=== PATIENT | female | born 1950 | race Caucasian/White ===

== ENCOUNTER 2021-10-06 00:56 | Emergency (ER) | payer MEDICARE, OTHER, SELFPAY ==
[2021-10-06 00:58] VITALS: BP 197/79; PULSE 60; RESP 18; TEMP 36.8; O2SAT 100; BMI 38.9
[2021-10-06 01:03] VITALS: BMI 38.9
--- NOTE | 2021-10-06 01:05 | XR_ITS ---
PROCEDURE INFORMATION: Exam: XR Chest Exam date and time: 10/06/2021 1:17 AM Age: 70 years old Clinical indication: Injury or trauma; Fall; Blunt trauma (contusions or hematomas) TECHNIQUE: Imaging protocol: XR of the chest. Views: 1 view. COMPARISON: CR XR SHOULDER RT MIN 2V 10/06/2021 1:14 AM FINDINGS: Lungs: Unremarkable. No consolidation. Pleural spaces: Unremarkable. No pleural effusion. No pneumothorax. Heart/Mediastinum: Unremarkable. No cardiomegaly. Bones/joints: Unremarkable. IMPRESSION: No acute findings.
--- NOTE | 2021-10-06 01:05 | CT_ITS ---
PROCEDURE INFORMATION: Exam: CT Head Without Contrast Exam date and time: 10/06/2021 1:13 AM Age: 70 years old Clinical indication: Injury or trauma; Fall; Blunt trauma (contusions or hematomas); Consciousness not specified TECHNIQUE: Imaging protocol: Computed tomography of the head without contrast. Radiation optimization: All CT scans at this facility use at least one of these dose optimization techniques: automated exposure control; mA and/or kV adjustment per patient size (includes targeted exams where dose is matched to clinical indication); or iterative reconstruction. COMPARISON: No relevant prior studies available. FINDINGS: Brain: Mild chronic brain volume loss and chronic small vessel ischemic changes. Cerebral ventricles: No ventriculomegaly. Paranasal sinuses: Chronic sphenoid sinusitis. Mastoid air cells: Visualized mastoid air cells are well aerated. Bones/joints: Unremarkable. No acute fracture. Soft tissues: Unremarkable. IMPRESSION: No acute intracranial findings.
--- NOTE | 2021-10-06 01:05 | CT_ITS ---
PROCEDURE INFORMATION: Exam: CT Cervical Spine Without Contrast Exam date and time: 10/06/2021 1:13 AM Age: 70 years old Clinical indication: Injury or trauma; Fall; Blunt trauma TECHNIQUE: Imaging protocol: Computed tomography images of the cervical spine without contrast. Radiation optimization: All CT scans at this facility use at least one of these dose optimization techniques: automated exposure control; mA and/or kV adjustment per patient size (includes targeted exams where dose is matched to clinical indication); or iterative reconstruction. COMPARISON: No relevant prior studies available. FINDINGS: Bones/joints: Anterior fusion of C6-C7. The hardware appears intact. Straightening of the curvature of the cervical spine is likely positional. Discs/Spinal canal/Neural foramina: No significant disc protrusion. No severe spinal canal stenosis. No significant neural foraminal narrowing. Lungs: Lung apices are normal. Thyroid: There is a right thyroid nodule measuring 2 cm on image 58 series 5. Soft tissues: Unremarkable. IMPRESSION: 1. No acute fracture or malalignment of the cervical spine. 2. There is a right thyroid nodule measuring 2 cm on image 58 series 5. Follow-up ultrasound is recommended. COMMENTS: Consistent with the [employer] [place] [employer]'s Incidental Findings Committee white paper (J Am Alek Radiol 2015): In patients aged 35 years and older with an incidental thyroid nodule equal to or greater than 1.[address], MRI or extrathyroidal US, further evaluation with dedicated thyroid US is recommended for patients with normal life expectancy and without comorbidities. For smaller nodules without suspicious features, no further evaluation or follow up is recommended.
--- NOTE | 2021-10-06 01:05 | XR_ITS ---
PROCEDURE INFORMATION: Exam: XR Right Shoulder Exam date and time: 10/06/2021 1:14 AM Age: 70 years old Clinical indication: Pain and injury or trauma; Fall; Blunt trauma (contusions or hematomas); Shoulder; Right TECHNIQUE: Imaging protocol: XR Right shoulder. Views: 2 or more views. COMPARISON: No relevant prior studies available. FINDINGS: Bones/joints: Normal. Soft tissues: Normal. IMPRESSION: No acute findings.
--- NOTE | 2021-10-06 01:05 | XR_ITS ---
PROCEDURE INFORMATION: Exam: XR Pelvis Exam date and time: 10/06/2021 1:19 AM Age: 70 years old Clinical indication: Injury or trauma; Fall; Blunt trauma (contusions or hematomas); Does not apply; Pelvic region TECHNIQUE: Imaging protocol: XR pelvis. Views: 1 or 2 view. COMPARISON: No relevant prior studies available. FINDINGS: Bones/joints: Bilateral hip degenerative changes with osteophyte formation involving the superior aspect of the acetabulum. No acute fracture. Soft tissues: Unremarkable. IMPRESSION: No acute findings.
[2021-10-06 01:43] VITALS: BP 160/77; PULSE 65; O2SAT 97
[2021-10-06 01:53] VITALS: BP 160/76; PULSE 62; O2SAT 93
--- NOTE | 2021-10-06 02:02 | HMH.EDFALL ---
ED Disposition Clinical Impression: Shoulder injury Qualifiers: Encounter type: initial encounter Laterality: right Qualified Code(s): S49.91XA - Unspecified injury of right shoulder and upper arm, initial encounter Fall Qualifiers: Encounter type: initial encounter Qualified Code(s): W19.XXXA - Unspecified fall, initial encounter Disposition: Home, Self-Care Condition on Discharge: Good Instructions: DI for Shoulder Pain Additional Instructions: ice and see pcp for follow up or oththo Referrals: Ivonne Bhardwaj PA [Primary Care Provider] - Boni Eldridge JR, MD [Physician] - - Critical Care Critical Care Time: No Attestation: On 10/06/21, the high probability of a clinically significant, sudden or life threatening deterioration of the following system(s) required my full and direct attention, intervention and personal management. The time I documented below is in addition to time spent performing reported procedures but includes the following listed in this critical care notation. Medical Decision Making - Medical Records Medical records reviewed: Yes: I reviewed the patient's medical records. - Thiago Inquiry Pt receiving controlled substance: No Vital Signs: 10/06/21 00:58 10/06/21 01:43 10/06/21 01:53 Temperature 98.3 F Temperature Source Oral Pulse Rate 65 62 Pulse Rate [Right] 60 Respiratory Rate 18 Blood Pressure 160/77 H 160/76 H Blood Pressure [Right Arm] 197/79 H Blood Pressure Mean 104 104 Blood Pressure Mean [Right Arm] 118 02 Sat by Pulse Oximetry 100 97 93 L - Lab Data Lab results reviewed: Yes: I reviewed the patient's lab results. Orders (Tests/Meds): ED MEDICATIONS Discontinued Medications Generic Name Dose Route Start Last Admin Trade Name Freq PRN Reason Stop Dose Admin Hydrocodone Bitart/Acetaminophen 1 tab 10/06/21 01:31 10/06/21 01:32 Hydrocodone/Apap 5/325 Mg Tablet PO 10/06/21 01:32 1 tab ONCE ONE Administration - Radiology Data #1 Image(s): Chest, Shoulder, Pelvis Image Reviewed: Yes I have reviewed radiologist's interpretation Preliminary Findings: No Fracture Seen - CT Data CT Scan: Head, C-Spine Time Received: 02:[address] Reviewed: Yes: I have viewed the radiologist's interpretation Preliminary Findings: Normal/NAD Medical Decision Narrative: tender rt shoulder w/o fx and will ask pt to see pcp Fall HPI - General Chief Complaint: Fall Stated Complaint: AO [id number] Right Shoulder Pain Time Seen by Provider: 10/06/21 02:02 Mode of Arrival: Ambulatory Source of Information: Patient, Medical Record Limitations: No Limitations Description of Symptoms (Recalled from ER Triage Doc. by RN): pt states was carrying down dog kennel down stairs and loss balance and fell down the stairs. pt c/o rt shoulder pain - History of Present Illness HPI Narrative: fall with acute shoulder pain sabas ROSEN complaint: fall Onset (ago): minute(s) Fall from: down stairs (#) Fall witnessed: no Place fall occurred: home Loss of consciousness: none Prolonged down time: no Symptoms prior to fall: none Context: tripped/slipped Location of injury - extremities: Right: shoulder Severity: moderate Associated symptoms (after fall): denies - Related Data Allergies Allergy/AdvReac Type Severity Reaction Status Date / Time No Known Allergies Allergy Verified 10/06/21 01:05 [facility] History - Hepatitis A Screen Attestation statement:: This patient has been screened for Hepatitis A risk factors. I have reviewed the patient's past medical history: Yes ROS Obtained: Yes All systems reviewed & no additional complaints - Constitutional Constitutional: Denies fever(s) - Eyes Eyes: Denies change in vision - ENT Ears, Nose, Mouth, and Throat: Denies sore throat - Cardiovascular Cardiovascular: Denies chest pain - Respiratory Respiratory: Denies shortness of breath - Gastrointestinal Gastrointestingal: D
[2021-10-06 02:18] VITALS: BP 159/78; PULSE 61; RESP 18; TEMP 36.8; O2SAT 99
== END 2021-10-06 02:19 | disposition home or self-care (01) ==
PROVIDERS: Emergency Provider Emergency Medicine; PCP Physician Assistant Medical
DX: S49.91XA Unspecified injury of right shoulder and upper arm, initial encounter (principal); W10.9XXA Fall (on) (from) unspecified stairs and steps, initial encounter
CPT/HCPCS: 70450; 71045; 72125; 72170; 73030; 99284

== ENCOUNTER 2022-01-17 14:15 | Emergency (ER) | payer MEDICARE, OTHER, SELFPAY ==
[2022-01-17 14:40] VITALS: BP 139/89; PULSE 83; RESP 22; TEMP 37.2; O2SAT 99; BMI 34.9
--- NOTE | 2022-01-17 14:40 | XR_ITS ---
FINAL REPORT CLINICAL HISTORY: CONGESTION COMPARISON: October 06, 2021 FINDINGS: TWO-VIEW CHEST Two views of the chest were obtained. The heart size and pulmonary vascularity are within normal limits. The mediastinum is normal. No acute pulmonary abnormality is identified. There is no pneumothorax. There are postoperative changes in the lower cervical spine. IMPRESSION: No active cardiopulmonary disease. Reviewed, Interpreted and Dictated by Jt Huizar III, MD Transcribed by Isela Cuevas Authenticated and [facility]
--- NOTE | 2022-01-17 15:43 | EXP.UTC ---
Discharge Plan Disposition Patient Disposition: Home, Self-Care Condition: Good Prescriptions Prescriptions: New amoxicillin-pot clavulanate 875-125 mg Tablet 1 tab PO Q12H 7 Days Qty: 14 0RF prednisone 20 mg tablet 20 mg PO BID Qty: 10 0RF benzonatate 100 mg capsule 100 mg PO TID PRN (Reason: cough) Qty: 30 0RF No Action tolterodine 2 mg Capsule,Extended Release 24hr 2 mg PO DAILY gabapentin 300 mg Capsule 300 mg PO DAILY Referrals Follow up/Referrals: Ivonne Bhardwaj PA [Primary Care Provider] - See instructions Activity Restrictions/Add. Instructions Additional Instructions/Restrictions: Start antibiotic today. Be sure to complete entire prescription even if feeling better Monitor temp. Tylenol every 4 hours as needed and / or ibuprofen every 6 hours as needed ( As long as your primary care physician has told you that it ok to take both. For fever/aches/pains ER if no less than 101 despite Tylenol or Motrin Humidifier/vaporizer or hot steamy shower Inhaler every 4-6 hours as needed like we discussed. If unsure how to use it, ask pharmacist to demonstrate how. Should help open airways and improve cough, wheezing, and shortness of breath *Tessalon Perles will not cause drowsiness but use at bedtime to help stop cough so that you may get some rest. *Start steroid today. Helps with inflammation therefore, cough and wheezing. Follow directions on the package. Reviewed side effects. Patient reports taking them before. Follow up IMMEDIATELY for new or worsening of symptoms OR no noticeable improvement over the next 48-72 hours. 911 immediately for any life threatening symptoms such as chest pain or difficulty breathing Clinical Impressions Clinical Impression: Bronchitis Instructions Patient Instructions: Acute Bronchitis, DI for Sinusitis Discharge ED Provider: Sarai Osborne [facility] HPI General Stated complaint: SOA,cough,sore throat,weakness,headache Mode of Arrival: Ambulatory Source of Information: Patient Limitations: No Limitations Time Seen by Provider: 01/17/22 15:43 Description of Symptoms (Recalled from Triage Doc. by RN): PATIENT C/O COUGH WITH DARK MUCOUS AND SOA X 1 WEEK HEENT Symptoms (Recalled from RN notes): No Resp Symptoms (Recalled from RN notes): Yes Skin Symptoms (Recalled from RN notes): No MS Symptoms (Recalled from RN notes): No Functional Status (Recalled from RN notes): WNL History of Present Illness Provider Complaint: Patient states that she has been having cough and chest congestion for about a week States that she has been having sinus congestion and pressure with drainage in the back of her throat States that she feels like she is trying to set up bronchitis or something States that at times after coughing she feels a little SOA Related Data Home Medications Medication Instructions Recorded Confirmed gabapentin 300 mg capsule 300 mg PO DAILY RLS 01/17/22 01/17/22 tolterodine 2 mg capsule,extended 2 mg PO DAILY BLADDER 01/17/22 01/17/22 release 24 hr Previous Rx's Medication Instructions Recorded amoxicillin 875 mg-potassium 1 tab PO Q12H 7 days #14 tabs 01/17/22 clavulanate 125 mg tablet benzonatate 100 mg capsule 100 mg PO TID PRN cough #30 caps 01/17/22 prednisone 20 mg tablet 20 mg PO BID #10 tabs 01/17/22 Allergies Allergy/AdvReac Type Severity Reaction Status Date / Time No Known Allergies Allergy Verified 10/06/21 01:05 Worker's Comp Is this a Worker's Comp case?: No [facility] Medical History (Updated 01/17/22 @ 16:24 by Sarai Osborne APRN) Thyroid disease Surgical History (Updated 01/17/22 @ 14:52 by Carina Heaton RN) History of cholecystectomy History of hysterectomy Social History (Updated 01/17/22 @ 14:53 by Carina Heaton RN) Smoking Status: Unknown if ever smoked alcohol intake: never current occupational status: other
[2022-01-17 16:28] VITALS: BP 139/89; PULSE 83; RESP 22; TEMP 37.2; O2SAT 99
== END 2022-01-17 16:32 | disposition home or self-care (01) ==
PROVIDERS: Emergency Provider Nurse Practitioner; PCP Physician Assistant Medical
DX: J20.9 Acute bronchitis, unspecified (principal)
CPT/HCPCS: 71046; 99212; G0463

== ENCOUNTER 2022-06-13 16:47 | Emergency (ER) | payer MEDICARE, OTHER, SELFPAY ==
[2022-06-13 17:13] VITALS: BP 168/77; PULSE 74; RESP 18; O2SAT 100; BMI 38.9
--- NOTE | 2022-06-13 18:13 | EXP.UTC ---
Discharge Plan Disposition Patient Disposition: Home, Self-Care Condition: Good Prescriptions Prescriptions: New benzonatate [benzonatate] 100 mg capsule 100 mg PO TIDP PRN (Reason: Cough) Qty: 30 0RF methylprednisolone 4 mg Tablets,Dose Pack 4 mg PO DIRECTED Qty: 21 0RF amoxicillin-pot clavulanate 875-125 mg Tablet 1 tab PO Q12H Qty: 20 0RF fluconazole [Diflucan] 150 mg tablet 150 mg PO ONCE Qty: 1 2RF No Action tolterodine 2 mg Capsule,Extended Release 24hr 2 mg PO DAILY gabapentin 300 mg Capsule 300 mg PO DAILY escitalopram oxalate 10 mg tablet 10 mg PO DAILY Referrals Follow up/Referrals: Ivonne Bhardwaj PA [Primary Care Provider] - See instructions Activity Restrictions/Add. Instructions Additional Instructions/Restrictions: Drink plenty of fluids. Take tylenol or ibuprofen for pain or fever. Take the medications as directed. Follow up with your regular doctor. GO TO THE ER FOR ANY WORSENING SYMPTOMS Clinical Impressions Clinical Impression: Bronchitis, Sinusitis Stand Alone Forms Stand Alone Forms: Work/School Release Discharge ED Provider: Kendrick Redmond [facility] General Stated complaint: cough,SOB,Congestion Mode of Arrival: Ambulatory Source of Information: Patient Limitations: No Limitations Time Seen by Provider: 06/13/22 18:13 Description of Symptoms (Recalled from Triage Doc. by RN): c/o cough and congestion with soa with walking. States her kids gave her the little kids got her sick. History of Present Illness Provider Complaint: She states that for the past 3 days she has had sinus congestion, chest congestion, productive cough with yellowish sputum and she has felt bad. Related Data Home Medications Medication Instructions Recorded Confirmed gabapentin 300 mg capsule 300 mg PO DAILY RLS 01/17/22 06/13/22 tolterodine 2 mg capsule,extended 2 mg PO DAILY BLADDER 01/17/22 06/13/22 release 24 hr escitalopram oxalate 10 mg tablet 10 mg PO DAILY . 06/13/22 06/13/22 Previous Rx's Medication Instructions Recorded amoxicillin 875 mg-potassium 1 tab PO Q12H #20 tabs 06/13/22 clavulanate 125 mg tablet benzonatate 100 mg capsule 100 mg PO TIDP PRN Cough #30 caps 06/13/22 fluconazole 150 mg tablet 150 mg PO ONCE #1 tab 06/13/22 (Diflucan) methylprednisolone 4 mg tablets in 4 mg PO DIRECTED #21 tabs 06/13/22 a dose pack Allergies Allergy/AdvReac Type Severity Reaction Status Date / Time No Known Allergies Allergy Verified 06/13/22 18:27 [facility] Disclaimer: The information contained in this section may have been updated after the patient was seen, as this information can be updated by other users. Medical History (Updated 06/13/22 @ 18:56 by Kendrick Redmond APRN) Thyroid disease Surgical History History of cholecystectomy History of hysterectomy Social History Smoking Status: Unknown if ever smoked alcohol intake: never current occupational status: other Travel in the last 8 weeks: None ROS Obtained: Yes All systems reviewed & no additional complaints except as documented Constitutional Constitutional: Reports chills and Reports fever(s) Eyes Eyes: Denies eye discharge ENT Ears, Nose, Mouth, and Throat: Reports as per HPI Cardiovascular Cardiovascular: Denies chest pain Respiratory Respiratory: Denies chest congestion and Reports cough Gastrointestinal Gastrointestingal: Reports nausea; Denies abdominal pain, constipation, cramping, diarrhea or vomiting Musculoskeletal Musculoskeletal: Denies arthralgias Integumentary/Breasts Skin/Breast: Denies rash Neurologic Neurologic: Denies paresthesias Physical Exam General General appearance: alert and in no apparent distress Eye Eye exam: Present normal appearance, PERRL and EOMI ENT ENT exam: Present mucous membranes moist and normal e
[2022-06-13 18:15] VITALS: BP 168/77; PULSE 74; RESP 20; TEMP 36.7; O2SAT 100; BMI 38.9
[2022-06-13 19:08] VITALS: BP 168/77; PULSE 74; RESP 20; TEMP 36.7; O2SAT 100
== END 2022-06-13 19:08 | disposition home or self-care (01) ==
PROVIDERS: Emergency Provider Nurse Practitioner Family; PCP Physician Assistant Medical
DX: J40 Bronchitis, not specified as acute or chronic (principal); J32.9 Chronic sinusitis, unspecified
CPT/HCPCS: 96372; 99212; 99213; G0463; J0696

== ENCOUNTER 2022-09-29 14:26 | Emergency (ER) | payer MEDICARE, OTHER, SELFPAY ==
--- NOTE | 2022-09-29 14:41 | EXP.UTC ---
Discharge Plan Disposition Patient Disposition: Home, Self-Care Condition: Good Prescriptions Prescriptions: New albuterol sulfate 90 mcg/actuation HFA aerosol inhaler 2 inh inhalation Q6H PRN (Reason: shortness of breath or wheezing) Qty: 8.5 0RF doxycycline hyclate 100 mg tablet 100 mg PO BID Qty: 20 0RF prednisone 20 mg tablet 20 mg PO BID Qty: 10 0RF No Action tolterodine 2 mg capsule,extended release 24hr 2 mg PO DAILY Label Comments: TAKE 1 CAPSULE BY MOUTH DAILY FOR OVERACTIVE BLADDER ibuprofen 800 mg tablet 800 mg PO TID Label Comments: TAKE 1 TABLET BY MOUTH 3 TIMES A DAY NEEDED FOR JOINT PAIN WITH ARTHRITIS cyanocobalamin (vitamin B-12) 1,000 mcg/mL solution 1,000 mcg IM MONTHLY Label Comments: ADMINISTER 1 ML IN THE MUSCLE EVERY 30 DAYS DIRECTED BY PRESCRIBER albuterol sulfate 90 mcg/actuation HFA aerosol inhaler 2 puff INHALATION Q6HP PRN (Reason: Wheezing) Label Comments: INHALE 2 PUFFS BY MOUTH EVERY 6 HOURS NEEDED FOR WHEEZING OR SHORTNESS OF BREATH escitalopram oxalate 10 mg tablet 10 mg PO DAILY Label Comments: TAKE 1 TABLET BY MOUTH ONCE DAILY. CANCEL 5MG DOSE (DME) Eclipse Syringe 3 mL 25 gauge x 1 syringe MISCELLANEOUS Label Comments: USE DIRECTED EVERY 30 DAYS WITH B12 INJECTION Clenpiq 10 mg-3.5 gram- 12 gram/175 mL solution 350 ml PO DIRECTED Label Comments: TAKE 350ML BY MOUTH DIRECTED gabapentin 300 mg Capsule 300 mg PO DAILY Referrals Follow up/Referrals: Ivonne Bhardwaj PA [Primary Care Provider] - See instructions Clinical Impressions Clinical Impression: Bronchitis Instructions Patient Instructions: DI for Acute Bronchitis Discharge ED Provider: Quynh Saleh [facility] HPI General Stated complaint: cough, congestion Time Seen by Provider: 09/29/22 15:10 History of Present Illness Provider Complaint: Cough, congestion X 2 days. Losing voice. No fever. Grandkids have been sick all week. Gets bronchitis somewhat frequently. Onset (ago): day(s) (2) Location: chest Relieving factors: none Exacerbating factors: none Associated symptoms: denies other symptoms Treatments prior to arrival: none Related Data Home Medications Medication Instructions Recorded Confirmed gabapentin 300 mg capsule 300 mg PO DAILY RLS 01/17/22 09/29/22 albuterol sulfate 90 mcg/actuation 2 puff inhalation Q6HP PRN Wheezing 09/29/22 09/29/22 aerosol inhaler cyanocobalamin (vitamin B-12) 1,000 mcg IM MONTHLY Supplement 09/29/22 09/29/22 1,000 mcg/mL injection solution escitalopram oxalate 10 mg tablet 10 mg PO DAILY . 09/29/22 09/29/22 ibuprofen 800 mg tablet 800 mg PO TID Pain 09/29/22 09/29/22 sod picosulf 10 mg-magnes 3.5 350 ml PO DIRECTED . 09/29/22 09/29/22 gram-citric 12 gram/175 mL oral solution (Clenpiq) syringe with needle, safety 3 mL 09/29/22 09/29/22 25 gauge x 1 (Eclipse Syringe) tolterodine 2 mg capsule,extended 2 mg PO DAILY OVERACTIVE BLADDER 09/29/22 09/29/22 release 24 hr Previous Rx's Medication Instructions Recorded albuterol sulfate 90 mcg/actuation 2 inh inhalation Q6H PRN shortness 09/29/22 aerosol inhaler of breath or wheezing #8.5 grams doxycycline hyclate 100 mg tablet 100 mg PO BID #20 tabs 09/29/22 prednisone 20 mg tablet 20 mg PO BID #10 tabs 09/29/22 Allergies Allergy/AdvReac Type Severity Reaction Status Date / Time No Known Allergies Allergy Verified 06/13/22 18:27 [facility] Disclaimer: The information contained in this section may have been updated after the patient was seen, as this information can be updated by other users. Medical History (Updated 09/29/22 @ 15:20 by JEANNETTE Gonzales) Thyroid disease Surgical History History of cholecystectomy History of hysterectomy Social History (Reviewed 06/13/22 @ 18:27 b
[2022-09-29 14:45] VITALS: BP 122/78; PULSE 75; RESP 18; TEMP 36.9; O2SAT 99; BMI 38.0
[2022-09-29 15:20] VITALS: BP 122/78; PULSE 75; RESP 18; TEMP 36.9; O2SAT 99
== END 2022-09-29 15:25 | disposition home or self-care (01) ==
PROVIDERS: Emergency Provider Physician Assistant; PCP Physician Assistant Medical
DX: J20.9 Acute bronchitis, unspecified (principal)
CPT/HCPCS: 99212; 99214; G0463

== ENCOUNTER 2022-11-28 06:28 | Day surgery (SDC) | payer MEDICARE, OTHER, SELFPAY ==
[2022-11-23 11:05] VITALS: BMI 39.3
[2022-11-28 06:53] VITALS: BP 153/63; PULSE 72; RESP 16; TEMP 36.4; O2SAT 97
[2022-11-28 08:03] VITALS: BP 133/74; PULSE 62; RESP 17; O2SAT 100
[2022-11-28 08:08] VITALS: BP 160/75; PULSE 60; RESP 16; O2SAT 97
[2022-11-28 08:13] VITALS: BP 149/74; PULSE 61; RESP 17; O2SAT 100
[2022-11-28 08:20] VITALS: BP 154/90; PULSE 78; RESP 18; O2SAT 93
== END 2022-11-28 08:30 | disposition home or self-care (01) ==
PROVIDERS: PCP Physician Assistant Medical; Visit Provider Ophthalmology
DX: H25.812 Combined forms of age-related cataract, left eye (principal)
CPT/HCPCS: 66984; V2632

== ENCOUNTER 2022-12-12 06:47 | Day surgery (SDC) | payer MEDICARE, OTHER, SELFPAY ==
[2022-12-12 07:09] VITALS: BP 160/54; PULSE 64; RESP 18; TEMP 36.4; O2SAT 97; BMI 38.9
[2022-12-12 08:10] VITALS: BP 172/83; PULSE 56; RESP 16; O2SAT 99
[2022-12-12 08:15] VITALS: BP 157/79; PULSE 55; RESP 17; O2SAT 99
[2022-12-12 08:20] VITALS: BP 147/72; PULSE 52; RESP 16; O2SAT 100
[2022-12-12 08:25] VITALS: BP 147/80; PULSE 67; RESP 18; TEMP 36.6; O2SAT 97
[2022-12-12 08:32] VITALS: BP 147/80; PULSE 67; RESP 18; TEMP 36.6; O2SAT 97
== END 2022-12-12 08:34 | disposition home or self-care (01) ==
PROVIDERS: PCP Physician Assistant Medical; Visit Provider Ophthalmology
DX: H25.811 Combined forms of age-related cataract, right eye (principal)
CPT/HCPCS: 66984; V2632

== ENCOUNTER 2023-04-24 13:28 | Emergency (ER) | payer MEDICARE, OTHER, SELFPAY ==
[2023-04-24 14:40] VITALS: BP 159/67; PULSE 60; RESP 18; TEMP 36.7; O2SAT 100; BMI 38.0
[2023-04-24 14:53] LABS: UTC Influenza A Antigen Negative (Negative); UTC Influenza B Antigen Negative (Negative)
--- NOTE | 2023-04-24 15:15 | EXP.UTC ---
Discharge Plan Disposition Patient Disposition: Home, Self-Care Condition: Good Prescriptions Prescriptions: New [id number]-[id number]-[id number] [Bromfed DM] 2-30-10 mg/5 mL syrup 10 ml PO Q6H PRN (Reason: cold symptoms) Qty: 200 0RF amoxicillin-pot clavulanate [Augmentin] 500-125 mg tablet 1 tab PO Q12H Qty: 20 0RF No Action albuterol sulfate 90 mcg/actuation HFA aerosol inhaler 2 inh inhalation Q6H PRN (Reason: shortness of breath or wheezing) Qty: 8.5 5RF tolterodine 2 mg capsule,extended release 24hr 2 mg PO DAILY Patient Comments: TAKE 1 CAPSULE BY MOUTH DAILY FOR OVERACTIVE BLADDER ibuprofen 800 mg tablet 800 mg PO TID Patient Comments: TAKE 1 TABLET BY MOUTH 3 TIMES A DAY NEEDED FOR JOINT PAIN WITH ARTHRITIS cyanocobalamin (vitamin B-12) 1,000 mcg/mL solution 1,000 mcg IM MONTHLY Patient Comments: ADMINISTER 1 ML IN THE MUSCLE EVERY 30 DAYS DIRECTED BY PRESCRIBER escitalopram oxalate 10 mg tablet 10 mg PO DAILY Patient Comments: TAKE 1 TABLET BY MOUTH ONCE DAILY. CANCEL 5MG DOSE (DME) Eclipse Syringe 3 mL 25 gauge x 1 syringe MISCELLANEOUS Patient Comments: USE DIRECTED EVERY 30 DAYS WITH B12 INJECTION ferrous fumarate 324 mg (106 mg iron) Tablet 1 mg PO DAILY (DME) Eclipse Syringe 3 mL 25 gauge x 1 syringe MISCELLANEOUS Patient Comments: USE DIRECTED EVERY 30 DAYS WITH B12 INJECTION gabapentin 300 mg Capsule 300 mg PO DAILY Referrals Follow up/Referrals: Ivonne Bhardwaj PA [Primary Care Provider] - See instructions Clinical Impressions Clinical Impression: Acute upper respiratory infection Instructions Patient Instructions: DI for Viral Upper Respiratory Infection -- Adult Discharge ED Provider: [place]ai Osborne [facility] [place] Stated complaint: shortness of air Mode of Arrival: Ambulatory Source of Information: Patient Limitations: No Limitations Time Seen by Provider: 04/24/23 15:14 Description of Symptoms (Recalled from Triage Doc. by RN): cough, fatigue, and body ache HEENT Symptoms (Recalled from RN notes): Yes Resp Symptoms (Recalled from RN notes): No Skin Symptoms (Recalled from RN notes): No MS Symptoms (Recalled from RN notes): No Functional Status (Recalled from RN notes): n/a History of Present Illness Provider Complaint: Pt states that they have had some sinus issues and body aches the last couple of days. She states that she had a Remicade on Sunday. Related Data Home Medications Medication Instructions Recorded Confirmed gabapentin 300 mg capsule 300 mg PO DAILY RLS 01/17/22 04/24/23 cyanocobalamin (vitamin B-12) 1,000 mcg IM MONTHLY Supplement 09/29/22 04/24/23 1,000 mcg/mL injection solution escitalopram oxalate 10 mg tablet 10 mg PO DAILY . 09/29/22 04/24/23 ibuprofen 800 mg tablet 800 mg PO TID Pain 09/29/22 04/24/23 syringe with needle, safety 3 mL 09/29/22 12/12/22 25 gauge x 1 (Eclipse Syringe) tolterodine 2 mg capsule,extended 2 mg PO DAILY OVERACTIVE BLADDER 09/29/22 04/24/23 release 24 hr ferrous fumarate 324 mg (106 mg 1 mg PO DAILY Supplement 11/23/22 04/24/23 iron) tablet syringe with needle, safety 3 mL 11/23/22 12/12/22 25 gauge x 1 (Eclipse Syringe) Previous Rx's Medication Instructions Recorded albuterol sulfate 90 mcg/actuation 2 inh inhalation Q6H PRN shortness 12/04/22 aerosol inhaler of breath or wheezing #8.5 grams amoxicillin 500 mg-potassium 1 tab PO Q12H #20 tabs 04/24/23 clavulanate 125 mg tablet (Augmentin) mwyfekhccizdzzk-kjhrbnreppyibmp-TY 10 ml PO Q6H PRN cold symptoms 04/24/23 2 mg-30 mg-10 mg/5 mL oral syrup #200 mL (Bromfed DM) Allergies Allergy/AdvReac Type Severity Reaction Status Date / Time No Known Allergies Allergy Verified 04/24/23 15:01 Worker's Comp Is this a Worker's Comp case?: No [facility] Disclaimer: The information contained in this section may have been u
[2023-04-24 15:31] VITALS: BP 159/67; PULSE 60; RESP 18; TEMP 36.7; O2SAT 100
== END 2023-04-24 15:30 | disposition home or self-care (01) ==
PROVIDERS: Nurse Practitioner Family; Emergency Provider Nurse Practitioner; PCP Physician Assistant Medical
DX: R05.9 Cough, unspecified (principal); J06.9 Acute upper respiratory infection, unspecified; R51.9 Headache, unspecified; R09.81 Nasal congestion; R53.83 Other fatigue; M79.18 Myalgia, other site; B34.9 Viral infection, unspecified
CPT/HCPCS: 87635; 87804; 99212; 99214; G0463

== ENCOUNTER 2023-05-21 10:44 | Emergency (ER) | payer MEDICARE, OTHER, SELFPAY ==
[2023-05-21 10:55] VITALS: BP 147/70; PULSE 73; RESP 20; TEMP 36.8; O2SAT 100; BMI 38.9
[2023-05-21 11:12] LABS: UTC Influenza A Antigen Negative (Negative); UTC Influenza B Antigen Negative (Negative)
--- NOTE | 2023-05-21 11:12 | ED_ITS ---
Discharge Plan Disposition Patient Disposition: Home, Self-Care Condition: Good Prescriptions Prescriptions: New doxycycline hyclate 100 mg capsule 100 mg PO BID Qty: 20 0RF prednisone [prednisone] 20 mg tablet 20 mg PO BID 5 Days Qty: 10 0RF guaifenesin [Mucinex] 600 mg tablet extended release 12hr 1,200 mg PO BID PRN (Reason: cough) Qty: 20 0RF albuterol sulfate [Proventil HFA] 90 mcg/actuation HFA aerosol inhaler 1 inh inhalation Q6H PRN (Reason: shortness of breath or wheezing) Qty: 8.5 0RF No Action tolterodine 2 mg capsule,extended release 24hr 2 mg PO DAILY Patient Comments: TAKE 1 CAPSULE BY MOUTH DAILY FOR OVERACTIVE BLADDER ibuprofen 800 mg tablet 800 mg PO TIDP PRN (Reason: Pain) Patient Comments: TAKE 1 TABLET BY MOUTH 3 TIMES A DAY NEEDED FOR JOINT PAIN WITH ARTHRITIS gabapentin 300 mg capsule 300 mg PO DAILY Patient Comments: TAKE 1 CAPSULE BY MOUTH FOUR TIMES DAILY escitalopram oxalate 10 mg tablet 10 mg PO DAILY Patient Comments: TAKE 1 TABLET BY MOUTH ONCE DAILY Referrals Follow up/Referrals: Provider,Referral, MD [Primary Care Provider] - See instructions Activity Restrictions/Add. Instructions Additional Instructions/Restrictions: * Start antibiotic today. Be sure to complete entire prescription even if feeling better * Monitor temp. Tylenol every 4 hours as needed and / or ibuprofen every 6 hours as needed ( As long as your primary care physician has told you that it ok to take both. For fever/aches/pains ER if no less than 101 despite Tylenol or Motrin * Humidifier/vaporizer or hot steamy shower * Inhaler every 4-6 hours as needed like we discussed. If unsure how to use it, ask pharmacist to demonstrate how. Should help open airways and improve cough, wheezing, and shortness of breath * Mucinex for your cough Be sure to drink lots of water. *Start steroid today. Helps with inflammation therefore, cough and wheezing. Follow directions on the package. Reviewed side effects. Patient reports taking them before. Follow up IMMEDIATELY for new or worsening of symptoms OR no noticeable improvement over the next 48-72 hours. 911 immediately for any life threatening symptoms such as chest pain or difficulty breathing Clinical Impressions Clinical Impression: Bronchitis, Sinusitis Instructions Patient Instructions: Acute Bronchitis, DI for Sinusitis Discharge ED Provider: Sarai Osborne [facility] [place] HPI General Stated complaint: soa, cough and poss fever, weakness Mode of Arrival: Ambulatory Source of Information: Patient Limitations: No Limitations Time Seen by Provider: 05/21/23 11:12 Description of Symptoms (Recalled from Triage Doc. by RN): PATIENT C/O WHEEZING, COUGH, AND SOA X 2 WEEKS HEENT Symptoms (Recalled from RN notes): No Resp Symptoms (Recalled from RN notes): Yes Skin Symptoms (Recalled from RN notes): No MS Symptoms (Recalled from RN notes): No Functional Status (Recalled from RN notes): WNL History of Present Illness Provider Complaint: Patient states that she has been having sinus congestion and pressure, cough, wheezing on and off and scratchy throat for 2 weeks States that she feels like she has coughed so much she has made her ribs sore States that last month she was given antibiotic for Bronchitis and she got a little better but then it came back States that today she was bringing her daughter in and wanted to get checked again Related Data Home Medications Medication Instructions Recorded Confirmed escitalopram oxalate 10 mg tablet 10 mg PO DAILY 05/21/23 05/21/23 gabapentin 300 mg capsule 300 mg PO DAILY 05/21/23 05/21/23 ibuprofen 800 mg tablet 800 mg PO TIDP PRN Pain 05/21/23 05/21/23 tolterodine 2 mg capsule,extended 2 mg PO DAILY 05/21/23 05/21/23 release 24 hr Previous Rx's Medication Instructions Recorded albuterol sulfate 90 mcg/actuation 1 inh inhalation Q6H PRN shortness 05/21/23 aerosol inhaler (Proventil HFA) of breath or wheezing #8.5 grams doxycycline hyclate 100 mg capsule 100 mg PO BID #20 caps 05/21/23 guaifenesin 600 mg tablet, 1,200 mg PO BID PRN cough #20 tabs 05/21/23 extended release 12 hr (Mucinex) prednisone 20 mg tablet 20 mg PO BID 5 days #10 tabs 05/21/23 Allergies Allergy/AdvReac Type Severity Reaction Status Date / Time No Known Allergies Allergy Verified 04/24/23 15:01 Worker's Comp Is this a Worker's Comp case?: No [facility] Disclaimer: The information contained in this section may have been updated after the patient was seen, as this information can be updated by other users. Medical History (Updated 05/21/23 @ 11:32 by Sarai Osborne APRN) Cataract History of pulmonary embolus (PE) Thyroid disease Surgical History History of cholecystectomy History of gastric bypass History of hysterectomy History of knee replacement procedure of right knee History of neck surgery History of shoulder surgery Family History Other Family history of diabetes mellitus type II Family history of hypertension Social History Smoking Status: Never smoker alcohol intake: never current occupational status: other Travel in the last 8 weeks: None housing: house lives independently: Yes marital status: single education level: high school service: No senior care: No caffeine: Yes do you feel safe at home: Yes victim of physical abuse: No victim of emotional abuse: No victim of sexual abuse: No would you like helpful sources: No ROS Obtained: Yes All systems reviewed & no additional complaints except as documented and Yes Systems reviewed as appropriate & no additional complaints except as documented Constitutional Constitutional: Reports system reviewed and no additional complaints, except as documented, Reports as per HPI and Reports headache(s) ENT Ears, Nose, Mouth, and Throat: Reports system reviewed and no additional complaints, except as documented, Reports as per HPI, Reports headache(s), Re ports sinus pain, Reports sinus pressure and Reports sore throat Cardiovascular Cardiovascular: Reports system reviewed and no additional complaints, except as documented, Reports as per HPI, Denies dyspnea and Denies dyspnea on exertion Respiratory Respiratory: Reports system reviewed and no additional complaints, except as documented, Reports as per HPI, Reports shortness of breath (at times after coughing), Reports cough, Denies dyspnea, Denies dyspnea on exertion, Denies hemoptysis, Reports pain with cough (sometimes) and Reports wheezing Gastrointestinal Gastrointestingal: Reports system reviewed and no additional complaints, except as documented and as per HPI Musculoskeletal Musculoskeletal: Reports system reviewed and no additional complaints, except as documented and Reports as per HPI Neurologic Neurologic: Reports headache(s) Allergic/Immunologic Allergic/Immunologic: Reports wheezing Physical Exam General General appearance: alert and in no apparent distress ENT ENT exam: Present mucous membranes moist Expanded ENT Exam Nose exam: Present sinus tenderness Throat exam: Present other (Pharyngeal erythema noted with PND) Chest Chest inspection: Present normal inspection; Absent symmetric chest wall rise or tenderness Respiratory Respiratory exam: Present normal lung sounds bilaterally and wheezes (scattered); Absent respiratory distress Cardiovascular Cardiovascular exam: Present regular rate, normal rhythm and normal heart sounds Neurological Exam Neurological exam: Present alert, oriented X3 and normal gait Medical Decision Making Thiago Inquiry Pt receiving controlled substance: No Thiago was queried for this patient: No Vital Signs: 05/21/23 10:55 Temperature 98.3 F Temperature Source Oral Pulse Rate [Left Brachial] 73 Respiratory Rate 20 Blood Pressure [Left Arm] 147/70 H Blood Pressure Mean [Left Arm] 95 Blood Pressure Source [Left Arm] Automatic Cuff Blood Pressure Position [Left Arm] Sitting 02 Sat by Pulse Oximetry 100 Oxygen Delivery Method Room Air Lab Data Lab results reviewed: Yes I reviewed the patient's lab results. Lab Results 05/21/23 11:01: Influenza Type A Ag Negative, Influenza Type B Ag Negative Medical Decision Narrative: Recommended CXR and patient declined states that she had one a week or so ago and has appointment with PCP later this week and will get it then Medications discussed with pharmacy
[2023-05-21 11:14] VITALS: BP 147/70; PULSE 73; RESP 20; TEMP 36.8; O2SAT 100
== END 2023-05-21 11:38 | disposition home or self-care (01) ==
PROVIDERS: Emergency Provider Nurse Practitioner
DX: J40 Bronchitis, not specified as acute or chronic (principal); J01.90 Acute sinusitis, unspecified; R05.9 Cough, unspecified; R06.2 Wheezing; E07.9 Disorder of thyroid, unspecified; Z86.711 Personal history of pulmonary embolism
CPT/HCPCS: 87804; 99212; 99214; G0463

== ENCOUNTER 2023-11-23 12:25 | Emergency (ER) | payer MEDICARE, OTHER, SELFPAY ==
[2023-11-23 12:39] VITALS: BP 148/71; PULSE 90; RESP 16; TEMP 37.1; O2SAT 96; BMI 38.6
--- NOTE | 2023-11-23 13:15 | EXP.UTC ---
Discharge Plan Disposition Patient Disposition: Home, Self-Care Condition: Good Prescriptions Prescriptions: New amoxicillin 500 mg capsule 500 mg PO TID 7 Days Qty: 21 0RF fluticasone propionate [Flonase Allergy Relief] 50 mcg/actuation spray,suspension 2 spray intranasal DAILY Qty: 16 0RF Rx Instructions: administer into each nostril No Action tolterodine 2 mg capsule,extended release 24hr 2 mg PO DAILY Patient Comments: TAKE 1 CAPSULE BY MOUTH DAILY FOR OVERACTIVE BLADDER ibuprofen 800 mg tablet 800 mg PO TIDP PRN (Reason: Pain) Patient Comments: TAKE 1 TABLET BY MOUTH 3 TIMES A DAY NEEDED FOR JOINT PAIN WITH ARTHRITIS gabapentin 300 mg capsule 300 mg PO DAILY Patient Comments: TAKE 1 CAPSULE BY MOUTH FOUR TIMES DAILY escitalopram oxalate 10 mg tablet 10 mg PO DAILY Patient Comments: TAKE 1 TABLET BY MOUTH ONCE DAILY doxycycline hyclate 100 mg capsule 100 mg PO BID Qty: 20 0RF prednisone [prednisone] 20 mg tablet 20 mg PO BID 5 Days Qty: 10 0RF guaifenesin [Mucinex] 600 mg tablet extended release 12hr 1,200 mg PO BID PRN (Reason: cough) Qty: 20 0RF albuterol sulfate [Proventil HFA] 90 mcg/actuation HFA aerosol inhaler 1 inh inhalation Q6H PRN (Reason: shortness of breath or wheezing) Qty: 8.5 0RF Referrals Follow up/Referrals: Ivonne Bhardwaj PA [Primary Care Provider] - See instructions Activity Restrictions/Add. Instructions Additional Instructions/Restrictions: Take medication as prescribed Use flonase as prescribed Follow up with your Family Doctor if needed Clinical Impressions Clinical Impression: Otitis media Instructions Patient Instructions: Middle Ear Infection, Amoxicillin Discharge ED Provider: Sarai Osborne [facility] General Stated complaint: left ear ache Mode of Arrival: Ambulatory Source of Information: Patient Limitations: No Limitations Time Seen by Provider: 11/23/23 13:16 Description of Symptoms (Recalled from Triage Doc. by RN): Complaint of left ear pain since yesterday. HEENT Symptoms (Recalled from RN notes): Yes Resp Symptoms (Recalled from RN notes): No Skin Symptoms (Recalled from RN notes): No MS Symptoms (Recalled from RN notes): No Functional Status (Recalled from RN notes): wnl History of Present Illness Provider Complaint: Patient states that she has been having pain in her left ear for about a week that got worse yesterday States that she feels pain shoot through it and it hurts her really bad feels like it did when she had an ear infection Related Data Home Medications Medication Instructions Recorded Confirmed escitalopram oxalate 10 mg tablet 10 mg PO DAILY 05/21/23 05/21/23 gabapentin 300 mg capsule 300 mg PO DAILY 05/21/23 05/21/23 ibuprofen 800 mg tablet 800 mg PO TIDP PRN Pain 05/21/23 05/21/23 tolterodine 2 mg capsule,extended 2 mg PO DAILY 05/21/23 05/21/23 release 24 hr Previous Rx's Medication Instructions Recorded albuterol sulfate 90 mcg/actuation 1 inh inhalation Q6H PRN shortness 05/21/23 aerosol inhaler (Proventil HFA) of breath or wheezing #8.5 grams doxycycline hyclate 100 mg capsule 100 mg PO BID #20 caps 05/21/23 guaifenesin 600 mg tablet, 1,200 mg (2 x 600 mg) PO BID PRN 05/21/23 extended release 12 hr (Mucinex) cough #20 tabs prednisone 20 mg tablet 20 mg PO BID 5 days #10 tabs 05/21/23 amoxicillin 500 mg capsule 500 mg PO TID 7 days #21 caps 11/23/23 fluticasone propionate 50 2 spray intranasal DAILY #16 grams 11/23/23 mcg/actuation nasal spray,suspension (Flonase Allergy Relief) Allergies Allergy/AdvReac Type Severity Reaction Status Date / Time No Known Allergies Allergy Verified 04/24/23 15:01 Worker's Comp Is this a Worker's Comp case?: No [facility] Disclaimer: The information contained in this section may have been updated after the patient was seen, as this information can be updated by other users. Medical History (Updated 11/23/23 @ 13:38 by Sarai Osborne APRN) Cataract History of pulmonary embolus (PE) Thyroid disease Surgical History History of neck surgery History of shoulder surgery History of knee replacement procedure of right knee History of gastric bypass History of hysterectomy History of cholecystectomy Family History Other Family history of diabetes mellitus type II Family history of hypertension Social History Smoking Status: Never smoker alcohol intake: never current occupational status: other Travel in the last 8 weeks: None housing: house lives independently: Yes marital status: single education level: high school service: No senior living: No caffeine: Yes do you feel safe at home: Yes victim of physical abuse: No victim of emotional abuse: No victim of sexual abuse: No would you like helpful sources: No ROS Obtained: Yes All systems reviewed & no additional complaints except as documented and Yes Systems reviewed as appropriate & no additional complaints except as documented Constitutional Constitutional: Reports system reviewed and no additional complaints, except as documented and Reports as per HPI ENT Ears, Nose, Mouth, and Throat: Reports system reviewed and no additional complaints, except as documented, Reports as per HPI and Reports otalgia Cardiovascular Cardiovascular: Reports system reviewed and no additional complaints, except as documented and Reports as per HPI Respiratory Respiratory: Reports system reviewed and no additional complaints, except as documented and Reports as per HPI Gastrointestinal Gastrointestingal: Reports system reviewed and no additional complaints, except as documented and as per HPI Physical Exam General General appearance: alert and in no apparent distress ENT ENT exam: Present mucous membranes moist Expanded ENT Exam TM/Canal exam: Left TM: erythema and bulging Respiratory Respiratory exam: Present normal lung sounds bilaterally; Absent respiratory distress or wheezes Cardiovascular Cardiovascular exam: Present regular rate, normal rhythm and normal heart sounds Neurological Exam Neurological exam: Present alert, oriented X3 and normal gait Medical Decision Making Thiago Inquiry Pt receiving controlled substance: No Thiago was queried for this patient: No Vital Signs: 11/23/23 12:39 Temperature 98.7 F Temperature Source Oral Pulse Rate [Radial] 90 Respiratory Rate 16 Blood Pressure [Right Arm] 148/71 H Blood Pressure Mean [Right Arm] 96 Blood Pressure Source [Right Arm] Automatic Cuff Blood Pressure Position [Right Arm] Sitting 02 Sat by Pulse Oximetry 96 Oxygen Delivery Method Room Air
[2023-11-23 13:44] VITALS: BP 148/71; PULSE 90; RESP 16; TEMP 37.1; O2SAT 96
== END 2023-11-23 13:44 | disposition home or self-care (01) ==
PROVIDERS: Emergency Provider Nurse Practitioner; PCP Physician Assistant Medical
DX: H66.92 Otitis media, unspecified, left ear (principal); H92.02 Otalgia, left ear
CPT/HCPCS: 99212; 99214; G0463

== ENCOUNTER 2024-03-28 16:22 | Emergency (ER) | payer MEDICARE, OTHER, SELFPAY ==
[2024-03-28 17:12] VITALS: BP 167/48; PULSE 60; RESP 18; TEMP 36.5; O2SAT 98; BMI 42.3
--- NOTE | 2024-03-28 17:29 | ED_ITS ---
Discharge Plan Prescriptions Prescriptions: New doxycycline hyclate 100 mg capsule 100 mg PO BID Qty: 20 0RF prednisone 20 mg tablet 20 mg PO BID 5 Days Qty: 10 0RF benzonatate 100 mg capsule 100 mg PO TID PRN (Reason: cough) Qty: 30 0RF No Action tolterodine 2 mg capsule,extended release 24hr 2 mg PO DAILY Patient Comments: TAKE 1 CAPSULE BY MOUTH DAILY FOR OVERACTIVE BLADDER ibuprofen 800 mg tablet 800 mg PO TIDP PRN (Reason: Pain) Patient Comments: TAKE 1 TABLET BY MOUTH 3 TIMES A DAY NEEDED FOR JOINT PAIN WITH ARTHRITIS gabapentin 300 mg capsule 300 mg PO DAILY Patient Comments: TAKE 1 CAPSULE BY MOUTH FOUR TIMES DAILY escitalopram oxalate 10 mg tablet 10 mg PO DAILY Patient Comments: TAKE 1 TABLET BY MOUTH ONCE DAILY albuterol sulfate [Proventil HFA] 90 mcg/actuation HFA aerosol inhaler 1 inh inhalation Q6H PRN (Reason: shortness of breath or wheezing) Qty: 8.5 0RF Referrals Follow up/Referrals: Ivonne Bhardwaj PA [Primary Care Provider] - See instructions Activity Restrictions/Add. Instructions Additional Instructions/Restrictions: * Start antibiotic today. Be sure to complete entire prescription even if feeling better * Monitor temp. Tylenol every 4 hours as needed and / or ibuprofen every 6 hours as needed ( As long as your primary care physician has told you that it ok to take both. For fever/aches/pains ER if no less than 101 de spite Tylenol or Motrin * Humidifier/vaporizer or hot steamy shower * Inhaler every 4-6 hours as needed like we discussed. If unsure how to use it, ask pharmacist to demonstrate how. Should help open airways and improve cough, wheezing, and shortness of breath * *Tessalon Perles will not cause drowsiness but use at bedtime to help stop cough so that you may get some rest. *Start steroid today. Helps with inflammation therefore, cough and wheezing. Follow directions on the package. Reviewed side effects. Patient reports taking them before. Follow up IMMEDIATELY for new or worsening of symptoms OR no noticeable improvement over the next 48-72 hours. 911 immediately for any life threatening symptoms such as chest pain or difficulty breathing Clinical Impressions Clinical Impression: Bronchitis, Sinusitis Instructions Patient Instructions: DI for Sinusitis, Acute Bronchitis Print Language Print Language: Singaporean Discharge ED Provider: Sarai Osborne [facility] HPI General Stated complaint: Cough,freezing,SOA,RAYMOND,sore throat Mode of Arrival: Ambulatory Source of Information: Patient Time Seen by Provider: 03/28/24 17:29 Description of Symptoms (Recalled from Triage Doc. by RN): COUGH, SOB, RAYMOND, DRAINAGE THAT IS THICK/GREEN X3 DAYS HEENT Symptoms (Recalled from RN notes): Yes Resp Symptoms (Recalled from RN notes): Yes Skin Symptoms (Recalled from RN notes): No MS Symptoms (Recalled from RN notes): No Functional Status (Recalled from RN notes): WNL History of Present Illness Provider Complaint: Patient states that she gets sinusitis and bronchitis about this time every year and feels like she has it States that she has been having sinus pain and pressure, drainage in the back of her throat and at times can cough it up at times not worried if she didnt come in it would settle into her lungs States feels like she cannot breath out of her nose and pressure behind her eyes Related Data Home Medications ?Medication ?Instructions ?Recorded ?Confirmed escitalopram oxalate 10 mg tablet 10 mg PO DAILY 05/21/23 03/28/24 gabapentin 300 mg capsule 300 mg PO DAILY 05/21/23 03/28/24 ibuprofen 800 mg tablet 800 mg PO TIDP PRN Pain 05/21/23 03/28/24 tolterodine 2 mg capsule,extended 2 mg PO DAILY 05/21/23 03/28/24 release 24 hr Previous Rx's ?Medication ?Instructions ?Recorded albuterol sulfate 90 mcg/actuation 1 inh inhalation Q6H PRN shortness 05/21/23 aerosol inhaler (Proventil HFA) of breath or wheezing #8.5 grams benzonatate 100 mg capsule 100 mg PO TID PRN cough #30 caps 03/28/24 doxycycline hyclate 100 mg capsule 100 mg PO BID #20 caps 03/28/24 prednisone 20 mg tablet 20 mg PO BID 5 days #10 tabs 03/28/24 Allergies Allergy/AdvReac Type Severity Reaction Status Date / Time No Known Allergies Allergy Verified 04/24/23 15:01 Worker's Comp Is this a Worker's Comp case?: No [facility] Disclaimer: The information contained in this section may have been updated after the patient was seen, as this information can be updated by other users. Medical History (Updated 03/28/24 @ 17:42 by Sarai Osborne APRN) Cataract History of pulmonary embolus (PE) Thyroid disease Surgical History History of neck surgery History of shoulder surgery History of knee replacement procedure of right knee History of gastric bypass History of hysterectomy History of cholecystectomy Family History Other Family history of diabetes mellitus type II Family history of hypertension Social History Smoking Status: Never smoker alcohol intake: never current occupational status: other housing: house lives independently: Yes marital status: single education level: high school service: No long-term: No caffeine: Yes do you feel safe at home: Yes victim of physical abuse: No victim of emotional abuse: No victim of sexual abuse: No would you like helpful sources: No ROS Obtained: Yes All systems reviewed & no additional complaints except as documented and Yes Systems reviewed as appropriate & no additional complaints except as documented Constitutional Constitutional: Reports system reviewed and no additional complaints, except as documented and Reports as per HPI ENT Ears, Nose, Mouth, and Throat: Reports system reviewed and no additional complaints, except as documented, Reports as per HPI, Reports sinus pain and Reports sinus pressure Cardiovascular Cardiovascular: Reports system reviewed and no additional complaints, except as documented and Reports as per HPI Respiratory Respiratory: Reports system reviewed and no additional complaints, except as documented, Reports as per HPI, Reports chest congestion and Reports cough Gastrointestinal Gastrointestingal: Reports system reviewed and no additional complaints, except as documented and as per HPI Physical Exam General General appearance: alert and in no apparent distress ENT ENT exam: Present mucous membranes moist Expanded ENT Exam Nose exam: Present sinus tenderness Throat exam: Present other (PND noted) Respiratory Respiratory exam: Present normal lung sounds bilaterally; Absent respiratory distress or wheezes Cardiovascular Cardiovascular exam: Present regular rate, normal rhythm and normal heart sounds Abdominal Exam Abdominal exam: Present soft and normal bowel sounds; Absent distention or tenderness Neurological Exam Neurological exam: Present alert, oriented X3 and normal gait Medical Decision Making Medical Records Screening: Per USPSTF and CDC recommendations, given the prevalence of disease in our region, it is our hospital?s policy to screen for HIV and viral Hepatitis for all patients aged 18 and over and those with ongoing risk factors. Thiago Inquiry Pt receiving controlled substance: No Thiago was queried for this patient: No Vital Signs: 03/28/24 17:12 Temperature 97.7 F Temperature Source Oral Pulse Rate [Left Radial] 60 Respiratory Rate 18 Blood Pressure [Left Arm] 167/48 H Blood Pressure Mean [Left Arm] 87 02 Sat by Pulse Oximetry 98 Medical Decision Narrative: Patient states that she has taken doxy and prednisone in the past without complications or reactions
[2024-03-28 17:44] VITALS: BP 167/48; PULSE 60; RESP 18; TEMP 36.5
== END 2024-03-28 17:47 | disposition home or self-care (01) ==
LOC: UTC 16:27
PROVIDERS: Emergency Provider Nurse Practitioner; PCP Physician Assistant Medical
DX: J20.9 Acute bronchitis, unspecified (principal)
CPT/HCPCS: 99213; G0381

== ENCOUNTER 2025-01-14 10:57 | Outpatient (RCR) | payer MEDICARE, OTHER, SELFPAY | END 2025-01-14 23:59 | disposition home or self-care (01) | LOC: PT 10:57 | PROVIDERS: PCP Physician Assistant Medical; Visit Provider Orthopaedic Surgery | DX: M48.062 Spinal stenosis, lumbar region with neurogenic claudication (principal) | CPT/HCPCS: 97163; 97530 ==

== ENCOUNTER 2025-03-29 15:33 | Emergency (ER) | payer MEDICARE, OTHER, SELFPAY ==
--- OUTSIDE RECORDS SUMMARY | 2022-03-23 09:25 | XMS_ITS | Encounter Summary ---
[facility] Organization [facility] Address [address] [place] [address] Care Team Providers Care Section Hand Name Role Phone Ivonne Renner PA-C Primary Care Provider [phone] Reason for Visit * Diagnostic Imaging (Routine) - Closed Specialty Diagnoses / Procedures Referred By Dawit mosley Referred To Contact Radiology Diagnoses Multiple thyroid nodules Procedures US Thyroid Valdez David MD [id number] [address] Phone: tel: fax: Referral ID Status Reason Start Date Expiration Date Visits Re quested Visits Authorized [id number] Closed 03/23/2022 03/23/2023 1 1 Encounter Details Date Type Department Care Team (Late st Contact Info) Description 03/23/2022 9:25 AM EST Hospital Encounter [facility] [address] [facility] [address] [place] [id number] Social History Tobacco Use Types Packs/Day Years Used Date Smoking Tobacco: Former Cigarettes Q uit: 1989 Passive Smoke Exposure: Past Smokeless Tobacco: Never Alcohol Use Standard Drinks/Week Comments Never 0 (1 standard drink = 0.6 oz pur e alcohol) PHQ-2 Answer Date Recorded Retired PHQ-9: Brief Depression Severity Measure Score 0 02/28/2023 PHQ-2 Answer Date Recorded Patient Health Questionnaire-2 Score 1 10/23/2024 Comments No Sex and Gender Information Value Date Recorded Sex Assigned at Not on file Legal Sex Female 11:56 AM EDT Gender Identity Not on file Sexual Orientation Not on file documented as of this encounter Functional Status documented as of this encounter Plan of Treatment Upcoming Encounters Date Type Department Care Team (Late st Contact Info) Description 04/24/2025 10:45 AM EST Office Visit [facility] [address] [facility] [address] [place] [phone] Ivonne Bhardwaj PA-C [address] [facility] [address] [place] [phone] 10/26/2025 10:15 AM EDT Office Visit [facility] [address] [facility] [address] [place] [phone] Ivonne Bhardwaj PA-C [address] [address] documented as of this encounter Procedures Procedure Name Priority Date/Time Associated Diagnosis Comments US THYROID Routine 03/23/2022 9:25 AM EST Multiple thyroid nodules documented in this encounter Results * US Thyroid (03/23/2022 9:25 AM EST) Narrative SYSTEMGENERATED, DOCUMENTATION - 03/23/2022 9:25 AM EST Please see performing physician's note for result. us Valdez David MD IMG US ORDERABLES Final Res ult documented in this encounter Visit Diagnoses Not on filedocumented in this encounter Care Teams Section Hand Relationship Specialty Start Date End Date Ivonne Bhardwaj PA-C [address] [address] PCP - General Family Medicine 01/02/17 documented as of this encounter
[2025-03-29] VITALS (7 sets, daily range): BP systolic 130–182; BP diastolic 57–79; PULSE 72–87; RESP 16–19; TEMP 36.7–37.1; O2SAT 95–99; BMI 33.1
--- OUTSIDE RECORDS SUMMARY | 2025-03-29 15:49 | XMS_ITS | Encounter Summary ---
Author Organization [facility] yste Address [address] [place] [address] Care Team Providers Care Wire Bender Hand Name Role Phone Ivonne Bhardwaj PA-C Primary Care Provider [phone]- [phone] Reason for Visit * Reason Onset Date Comments Med Refill 02/20/2025 Encounter Details Date Type Department Care Team (Late st Contact Info) Description 02/20/2025 Refill [facility] [address] [facility] [address] [place] [address] Ivonne Bhardwaj PA-C [address] [facility] [address] [place], [place] [id number] Social History Tobacco Use Types Packs/Day Years [...] on file documented as of this encounter Miscellaneous Notes * Telephone Encounter - Alexa Lobato RegSched Rep - 02/20/2025 2:00 PM EDT Caller: Jaqueline Cabello Relationship: Self Best call back number: Requested Prescriptions: Requested Prescriptions Pending Prescriptions Disp Refills Tirzepatide (MOUNJARO) 5 MG/0.5ML solution auto-injector 2 mL 1 Sig: Inject 0.5 mL under the skin into the appropriate area as directed 1 (One) Time Per Week. Pharmacy where request should be sent: [id number] - [place], [place] - [address] [address] [address] [facility] - [phone] [facility] [phone] Last office visit with prescribing clinician: 10/23/2024 Last telemedicine visit with prescribing clinician: Visit date not found Next office visit with prescribing clinician: 04/24/2025 Additional details provided by patient: PATIENT STATED SHE IS OUT OF THE INJECTIONS PATIENT REQUESTED THE DOSAGE BE INCREASED TO 7.5 MG PATIENT ALSO STATED SHE HAS LOST 38 LBS Does the patient have less than a 3 day supply: [x] Yes [] No Would you like a call back once the refill request has been completed: [] Yes [] No If the office needs to give you a call back, can they leave a voicemail: [] Yes [] No Christina Cantu 02/20/25 14:01 EDT documented in this encounter Plan of Treatment Upcoming Encounters Date Type Department Care Team (Late st Contact Info) Description 04/24/2025 10:45 AM EST Office Visit [facility] [address] [facility] [address] [place] [id number] Ivonne Bhardwaj PA-C [address] [facility] [address] [place] [address] 10/26/2025 10:15 AM EDT Office Visit [facility] [address] [facility] [address] [place] [address] Ivonne Bhardwaj PA-C [address] [facility] [address] [place], [place] [id number] documented as of this encounter Visit Diagnoses Not on filedocumented in this encounter Care Teams Wire Bender Hand Relationship Specialty Start Date End Date Ivonne Bhardwaj PA-C [address] [facility] [address] [place], [place] [id number] PCP - General Family Medicine 01/02/17 documented as of this encounter
--- OUTSIDE RECORDS SUMMARY | 2025-03-29 15:49 | XMS_ITS | Clinical Summary ---
[facility] Address [address] [place] [address] Care Team Providers Care Software Developer Mid Level Name Role Phone Mumtazed Renner PA-C Primary Care Provider [phone]- [phone] Allergies Active Allergy Reactions Criticality Noted Date Comments Metronidazole Other (See Comments) Medium 02/10/2016 Raised blood pressure so high her ears bled Medications albuterol (ACCUNEB) 1.25 MG/3ML nebulizer solution Take 3 mL by nebulization Every 6 (Six) Hours As Needed for Wheezing or Shortness of Air. 375 mL 1 03/16/20 22 Active albuterol sulfate HFA 108 (90 Base) MCG/ACT inhalerIndicati ons:Acute bronchitis, unspecified organism INHALE 2 PUFFS BY MOUTH EVERY 6 HOURS NEEDED FOR WHEEZING OR SHORTNESS OF BREATH 54 g 10/07/19 23 Active Diclofenac Sodium (VOLTAREN) 1 % gel gel Apply 2 g topically to the appropriate area as directed 2 (Two) Times a Day. 100 g 2 02/29/20 23 Active Pseudoephedrine -guaiFENesin (MUCINEX D PO) Take by mouth. Active budesonide-form oterol (Symbicort) 160-4.5 MCG/ACT inhaler Inhale 2 puffs 2 (Two) Times a Day. 10.2 g 12 05/24/19 24 Active buPROPion XL (Wellbutrin XL) 150 MG 24 hr tablet Take 1 tablet by mouth Daily. For depression 90 tablet 3 10/24/19 25 Active tolterodine LA (Detrol LA) 4 MG 24 hr capsule Take 1 capsule by mouth Daily. For OAB, new dose 90 capsule 3 10/24/19 25 Active gabapentin (NEURONTIN) 300 MG capsuleIndicati ons:Restless leg syndrome Take 1 capsule by mouth 4 (Four) Times a Day. 120 capsule 5 10/24/19 25 Active escitalopram (Lexapro) 20 MG tablet Take 1 tablet by mouth Daily. 90 tablet 3 10/24/19 25 Active cyanocobalamin 1000 MCG/ML injection Inject 1 mL into the appropriate muscle as directed by prescriber Every 30 (Thirty) Days. 3 mL 4 10/24/19 25 Active Syringe/Needle, Disp, (BD Eclipse Syringe) 25G X 1 3 ML misc Inject 1 mL into the appropriate muscle as directed by prescriber Every 30 (Thirty) Days. 3 each 10/24/19 25 Active ferrous gluconate (FERGON) 324 MG tablet Take 1 tablet by mouth Daily With Breakfast. Take with a citrus beverage or fruit for improved absorption 30 tablet 10/24/19 25 Active amoxicillin (AMOXIL) 500 MG capsule Take 1 capsule by mouth 3 (Three) Times a Day. For bronchitis 21 capsule 10/24/19 25 Active promethazine-de xtromethorphan (PROMETHAZINE-D M) 6.25-15 MG/5ML syrup Take 5 mL by mouth 4 (Four) Times a Day As Needed for Cough. 120 mL 1 10/24/19 25 Active ibuprofen (ADVIL,MOTRIN) 800 MG tabletIndicatio ns:Arthritis TAKE 1 TABLET BY MOUTH THREE TIMES DAILY NEEDED FOR JOINT PAIN WITH ARTHRITIS 90 tablet 3 02/11/20 25 Active Tirzepatide (Mounjaro) 7.5 MG/0.5ML solution auto-injector Inject 0.5 mL under the skin into the appropriate area as directed 1 (One) Time Per Week. 3 mL 03/24/20 25 Active Tirzepatide (MOUNJARO) 5 MG/0.5ML solution auto-injector Inject 0.5 mL under the skin into the appropriate area as directed 1 (One) Time Per Week. 2 mL 1 02/21/20 25 025 Discontin ued(*Ther apy completed ) Active Problems Problem Noted Date Diagnosed Date Multiple thyroid nodules 03/23/2022 Assessment & Plan (03/23/2022 10:21 AM EST): -Ultrasound today is stable from ultrasound done 11/2021 -Right-sided nodule could have FNA done today given size is 2 cm but at this time patient declines and prefers to watch with serial ultrasound which is a reasonable treatment option at this time -Left-sided nodules do not meet sonographic criteria for FNA at this time -Recommend repeat ultrasound in 6 months or sooner with changes in physical exam, new onset hoarseness, shortness of breath or dysphagia -Recommend checking TSH prior to next visit Morbidly obese 02/20/2020 Arthritis of knee 09/04/2018 Status post total right knee replacement 019 Mild intermittent asthma 04/09/2018 Primary osteoarthritis of right knee 03/19/2018 Overview (03/19/2018): Added automatically from request for surgery [id number] Primary osteoarthritis of right hip 10/22/2017 Prediabetes 02/12/2017 Restless leg syndrome 02/05/2017 Arthritis, hip 02/05/2017 Resolved Problems Problem Noted Date Diagnosed Date Resolved Date Acute postoperative pain 09/05/2018 Annual SLEEP SCIENTIST exam w/o problems 03/18/2017 10/23/2024 Overview (03/22/2017): SCREENING TESTS Year 2013 2014 2016 2017 2018 2018 2019 2020 2021 2022 2023 2024 2025 2026 2027 2028 2029 2030 2031 2032 Age 66 JA [Birads] 10 [1] ARI score Colonoscopy - - - - DEXA [T-score] Frax [hip/any] - - - Lipids [LDL / HDL / TG] Vitamin D Ovarian Screen Enter the month test was performed. 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 03/22/2017 Depression 02/05/2017 03/22/2017 Chronic back pain 02/05/2017 03/22/2017 Encounters Date Type Department Care Team Description 03/23/2025 Telephone [facility] [address] [facility] [address] [place] [address] Ivonne Bhardwaj PA-C Med Management 02/20/2025 Refill [facility] [address] [facility] [address] [place] [address] Ivonne Bhardwaj PA-C 02/10/2025 Refill [facility] [address] [facility] [address] [place] [address] Ivonne Bhardwaj PA-C Arthritis from Last 3 Months Immunizations Immunization Administration Dates Next Due FLUAD TRI 65YR+ 04/01/2014 Fluzone >6mos 02/05/2017 Fluzone Quad >6mos (Multi-dose) 02/05/2017 Influenza Seasonal Injectable 04/01/2014 Influenza Split Preservative Free ID 02/05/2017 Pneumococcal Conjugate 13-Valent (PCV13) 017 Family History Medical History Relation Name Comments Heart disease Father Nikolas Osorio Diabetes Mother Bebeto Osorio Heart disease Mother Bebeto Osorio Hypertension Mother Bebeto Osorio Lung disease Mother Bebeto Osorio Ovarian cancer Sister Relation Name Status Comments Father Nikolas Osorio Mother Bebeto Osorio Sister Social History Tobacco Use Types Packs/Day Years Used Date Smoking Tobacco: Former Cigarettes Q uit: 1989 Passive Smoke Exposure: Past Smokeless Tobacco: Never Tobacco Cessation:Counseling Given: Yes Alcohol Use Standard Drinks/Week Comments Never 0 [...] on file Sexual Orientation Not on file Last Filed Vital Signs Vital Sign Reading Time Taken Comments Blood Pressure 136/78 10/23/2024 10:20 AM EDT Pulse 84 10/23/2024 10:20 AM EDT Temperature 36.8 C (98.3 F) 10/23/2024 10:20 AM EDT Respiratory Rate 20 03/11/2019 3:24 PM EST Oxygen Saturation 99% 10/23/2024 10:20 AM EDT Inhaled Oxygen Concentration - - Weight 98 kg (216 lb) 10/23/2024 10:20 AM EDT Height 156.2 cm (5' 1.5 ) 10/23/2024 10:20 AM ED T Body Mass Index 40.15 10/23/2024 10:20 AM EDT Plan of Treatment Upcoming Encounters Date Type Department Care Team (Late st Contact Info) Description 04/24/2025 10:45 AM EST Office Visit [facility] [address] [phone] Ivonne Bhardwaj PA-C [address] [address] 10/26/2025 10:15 AM EDT Office Visit [facility] [address] [address] Ivonne Bhardwaj PA-C [address] [address] Health Maintenance Due Date Last Done Comments DXA SCAN 1950 COLOGUARD 12/01/1995 COLON CANCER SCREENING 5 YEAR SIGMOIDOSCOPY 12/01/1995 CT COLONOGRAPHY 12/01/1995 FECAL OCCULT BLOOD TEST 12/01/1995 FIT Testing (1 year) 12/01/1995 PT PLAN OF CARE 12/03/2018 09/04/2018 Pneumococcal Vaccine 50+ (2 of 2 - PPSV23, PCV20, or PCV21) 04/21/2025 02/05/2017 Postponed from 04/02/2017 (Patient Refused) ZOSTER VACCINE (2 of 2) 04/21/2025 02/05/2017 (Decli vandana) Postponed from 04/02/2017 (Patient Refused) TDAP/TD VACCINES (1 - Tdap) 05/21/2025 Postponed from 1969 (Patient Refused) INFLUENZA VACCINE 08/09/2025 04/09/2018 (De clined), 02/05/2017, 02/05/2017, Additional history exists Postponed from 12/05/2024 (Patient Refused) COVID-19 Vaccine (#1) 08/11/2025 Postpo vandana from [birth year]01/1955 (Patient Refused) ANNUAL WELLNESS VISIT 10/23/2025 10/23/2024 , 10/23/2024, 05/24/2023, Additional history exists MAMMOGRAM 10/23/2025 02/09/2017, 10/2016, 02/07/2017, Additional history exists Postponed from 02/09/2019 (Patient Refused) COLONOSCOPY 09/04/2032 09/04/2022, 05/2022, 09/04/2022, Additional history exists COLORECTAL CANCER SCREENING 09/04/2032 HEPATITIS C SCREENING Addressed 02/05/2017 (Decline d) Overridden with the intention of not completing the topic Medical Devices Implanted Type Area Managing Cognitive Engineer Device Identifier Shelf Expiration Date Model / Serial / Lot Cervical Fusion Hardware Implant Right Ankle Orif Hardware Implant Allogrft Bone Vivigen Celluar Matrx Formable 5cc - [id number] Implanted:Qty : 1 on 02/12/2017 by Gil Erickson MD at [facility] Implant [facility] [id number] / / NA Spacr Tpal Peek [id number] - [id number] Implanted:Qty : 1 on 02/12/2017 by Gil Erickson MD at [facility] Implant DEPUY SYNTHES [id number] / / NA Scrw Expedium Pa Ti 6x45mm - [id number] Implanted:Qty : 4 on 02/12/2017 by Gil Erickson MD at [facility] Implant DEPUY SPINE [id number] / / NA Joshua Expedium Prebnt Ti 5.5x40mm - [id number] Implanted:Qty : 2 on 02/12/2017 by Gil Erickson MD at [facility] Implant DEPUY SPINE [id number] / / NA Scrw Innr Expedium - [id number] Implanted:Qty : 4 on 02/12/2017 by Gil Erickson MD at [facility] Implant DEPUY SPINE [id number] / / NA Comp Fem Triath Cr No3 Rt - [id number] Implanted:Qty : 1 on 09/04/2018 by Cirilo Gallardo MD at [facility] Implant Right: Knee SANCHO GERALDINE 04/14/2023 [id number] / / [id number] Baseplt Tib Triath Ts No3 - [id number] Implanted:Qty : 1 on 09/04/2018 by Cirilo Gallardo MD at [facility] Implant Right: Knee SANCHO GERALDINE 07/11/2023 [id number] / / [id number] Pat Triath Asym X3 9x29mm - [id number] Implanted:Qty : 1 on 09/04/2018 by Cirilo Gallardo MD at [facility] Implant Right: Knee SANCHO GERALDINE 04/18/2023 [id number] / / [id number] Totl Kn Hi Demand [place] - [id number] Implanted:Qty : 1 on 09/04/2018 by Cirilo Gallardo MD at [facility] Implant Right: Knee SANCHO GERALDINE CAPKNTOTLHIDE [id number] / / Cmt Bone Simplex/P Full Dose 10/Pk - [id number] Implanted:Qty : 2 on 09/04/2018 by Cirilo Gallardo MD at [facility] Implant Right: Knee SANCHO GERALDINE 10/04/2020 [id number] / / [id number] Insrt Tib Triath C/S X3 Sz3 9mm - [id number] Implanted:Qty : 1 on 09/04/2018 by Cirilo Gallardo MD at [facility] Implant Right: Knee SANCHO GERALDINE 02/20/2023 [id number] / / [id number] Procedures Procedure Name Priority Date/Time Associated Diagnosis Comments SCANNED - COLONOSCOPY 09/04/2022 MAMMO SCREENING DIGITAL TOMOSYNTHESIS BILATERAL W CAD Routine 02/07/2017 10:09 AM EDT Encounter for screening mammogram for malignant neoplasm of breast from Last 3 Months or Most Recently Relevant to Health Maintenance Results * SCANNED - COLONOSCOPY (09/04/2022) Lance Murillo MD CHART REVIEW TABS Final Result * Mammo Screening Digital Tomosynthesis Bilateral With CAD (02/07/2017 10:09 AM EDT) Anatomical Region Laterality Modality Breast N/A Mammography 02/09/2017 11:0 2 AM EDT Impressions 02/09/2017 11:06 AM EDT No findings suspicious for malignancy. BI-RADS CATEGORY: 1, NEGATIVE RECOMMENDATION: Yearly mammogram, yearly clinical breast exam, and encourage self breast awareness. CAD was used. The standard false negative rate of mammography is between 10% and 25%. Complex patterns or increased breast density will markedly elevate the false negative rate of mammography. A letter, in lay terminology, with the results of this exam will be mailed to the patient. This report was finalized on 02/09/2017 11:[address] Filomena Sawyer MD. Narrative 02/09/2017 11:06 AM EDT ROUTINE SCREENING MAMMOGRAM HISTORY: 66-year-old female for routine screening IMAGE COMPARISON: Baseline TECHNIQUE: Bilateral full field digital mammography was performed in both 2 and 3-dimensional acquisitions. FINDINGS: There are scattered areas of fibroglandular density. There is no worrisome mass, group of calcifications, or architectural distortion to suggest malignancy. Ivonne Bhardwaj PA-C IMG MAMMOGRAPHY ORDERABLES Final Result from Last 3 Months or Most Recently Relevant to Health Maintenance Insurance MEDICARE A & B UMR Advance Directives * CPR (Attempt to Resuscitate) (Latest Code Status on File) Date Activated Date Inactivated Comments 09/04/2018 12:08 PM 09/05/2018 4:42 PM Question Answer Comments Code Status (Patient has no pulse and is not breathing): CPR (Attempt to Resuscitate) Medical Interventions (Patie nt has pulse or is breathing): Full * Full Code Date Activated Date Inactivated Comments 02/12/2017 10:51 AM 02/14/2017 2:43 PM Care Teams Software Developer Mid Level Relationship Specialty Start Date End Date Ivonne Bhardwaj PA-C [address] [address] PCP - General Family Medicine 01/02/17
--- OUTSIDE RECORDS SUMMARY | 2025-03-29 15:49 | XMS_ITS | Encounter Summary ---
[facility] Address [address] [place] [address] Care Team Providers Care Quitline Counselor Name Role Phone Ivonne Bhardwaj PA-C Primary Care Provider +1- [phone] Encounter Details Date Type Department Care Team (Late Contact Info) Description 05/17/2020 Telephone [facility] [address] [facility] [address] [place] [address] Ivonne Bhardwaj PA-C [address] [facility] [address] [place], [place] [phone] Social History Tobacco Use Types Packs/Day Years Used Date Smoking Tobacco: Former Cigarettes Q uit: 1989 Smokeless Tobacco: Never Alcohol Use Standard Drinks/Week Comments No 0 (1 standard drink = 0.6 oz pur e alcohol) PHQ-2 Answer Date Recorded PHQ-2 Score 1 04/09/2018 Comments No Sex and Gender Information Value Date Recorded Sex Assigned at Not on file Legal Sex Female 11:56 AM EDT Gender Identity Not on file Sexual Orientation Not on file documented as of this encounter Plan of Treatment Upcoming Encounters Date Type Department Care Team (Late Contact Info) Description 04/24/2025 10:45 AM EST Office Visit [facility] [address] [facility] [address] [place] [address] Ivonne Bhardwaj PA-C [address] [facility] [address] [place] [address] 10/26/2025 10:15 AM EDT Office Visit [facility] [address] [facility] [address] [place] [phone] Ivonne Bhardwaj PA-C [address] [facility] [address] [place] [address] documented as of this encounter Visit Diagnoses Not on filedocumented in this encounter Care Teams Quitline Counselor Relationship Specialty Start Date End Date Ivonne Bhardwaj PA-C [address] [facility] [address] [place] [address] PCP - General Family Medicine 01/02/17 documented as of this encounter
--- OUTSIDE RECORDS SUMMARY | 2025-03-29 15:49 | XMS_ITS | Encounter Summary ---
[facility] Address [address] [place] [address] Care Team Providers Care Keyboard Action Assembler Name Role Phone Ivonne Bhardwaj PA-C Primary Care Provider +1- [phone] Reason for Visit * Reason Onset Date Comments Med Management 03/23/2025 Encounter Details Date Type Department Care Team (Late st Contact Info) Description 03/23/2025 Telephone [facility] [address] [facility] [address] [place] [phone] Ivonne Bhardwaj PA-C [address] [phone] Med Management Social History Tobacco Use Types Packs/Day Years [...] encounter Miscellaneous Notes * Telephone Encounter - Giselle Peralta MA - 03/24/2025 11:43 AM EST New dosing pended * Telephone Encounter - Alejandrina Cain RegSched Rep - 03/23/2025 11:48 AM EST Caller: Destiney Jaqueline Osorio Relationship: SELF Best call back number: [phone] What is your medical concern? Tirzepatide (MOUNJARO) 5 MG/0.5MLsolution auto-injector ADDITIONAL INFORMATION: PATIENT WOULD LIKE TO INCREASE THE DOSAGE OF Tirzepatide (MOUNJARO) 5 MG/0.5ML solution auto-injector TO 7.5 MG. THE PHARMACY IS [id number] - [facility], [place] - [address] AT [address] & [facility] - [phone] [facility] [phone] FX. THE PATIENT'S NEXT SHOT IS DUE 03/24/25, AND SHE IS OUT OF MEDICATION. documented in this encounter Plan of Treatment Upcoming Encounters Date Type Department Care Team (Late st Contact Info) Description 04/24/2025 10:45 AM EST Office Visit [facility] [address] [place] [phone] Ivonne Bhardwaj PA-C [address] [facility] [address] [place] [address] 10/26/2025 10:15 AM EDT Office Visit [facility] [address] [facility] [address] [place] [phone] Ivonne Bhardwaj PA-C [address] [facility] [address] [place] [address] documented as of this encounter Visit Diagnoses Not on filedocumented in this encounter Care Teams Keyboard Action Assembler Relationship Specialty Start Date End Date Ivonne Bhardwaj PA-C [address] [place] [address] PCP - General Family Medicine 01/02/17 documented as of this encounter
--- OUTSIDE RECORDS SUMMARY | 2025-03-29 15:49 | XMS_ITS | Encounter Summary ---
Author Organization [facility] Address [address] [place] [address] Care Team Providers Care Storage Specialist Name Role Phone Ivonne Bhardwaj PA-C Primary Care Provider +1- [phone] Reason for Visit * Reason Onset Date Comments MED CONCERN 06/24/2021 Encounter Details Date Type Department Care Team (Late st Contact Info) Description 06/24/2021 Refill [facility] [address] [facility] [address] [place] [phone] Ivonne Bhardwaj PA-C [address] [phone] Arthritis Social History Tobacco Use Types Packs/Day Years [...] encounter Miscellaneous Notes * Telephone Encounter - Mayra Hogan RegSched Rep - 06/24/2021 2:25 PM EST PT CALLED STATED THAT SHE IS BEING TOLD BY PHARMACY THAT SOME TYPE OF AUTH IS NEEDED BEFORE PHARMACY CAN RELEASE HER RX ibuprofen (ADVIL,MOTRIN) 800 MG tablet . PLEASE ADVISE CALL BACK:[phone] [id number] - [place], [place] - [address] [facility] AT - [phone] [facility] [phone] FX documented in this encounter Plan of Treatment Upcoming Encounters Date Type Department Care Team (Late st Contact Info) Description 04/24/2025 10:45 AM EST Office Visit [facility] [address] [place] [phone] Ivonne Bhardwaj PA-C [address] [address] 10/26/2025 10:15 AM EDT Office Visit [facility] [address] [address] Ivonne Bhardwaj PA-C [address] [address] documented as of this encounter Visit Diagnoses Diagnosis Arthritis Unspecified arthropathy, site unspecified documented in this encounter Care Teams Storage Specialist Relationship Specialty Start Date End Date Ivonne Bhardwaj PA-C [address] [place] [address] PCP - General Family Medicine 01/02/17 documented as of this encounter
--- OUTSIDE RECORDS SUMMARY | 2025-03-29 15:49 | XMS_ITS | Encounter Summary ---
[facility] Address [address] [place] [address] Care Team Providers Care Emergency Technician Name Role Phone Ivonne Bhardwaj PA-C Primary Care Provider +1- [phone] Reason for Visit * Reason Comments Med Refill Encounter Details Date Type Department Care Team (Late Contact Info) Description 02/10/2025 Refill [facility] [address] [address] Ivonne Bhardwaj PA-C [address] [place] [phone] Arthritis Social History Tobacco Use Types Packs/Day [...] Description 04/24/2025 10:45 AM EST Office Visit [facility] [address] [phone] Ivonne Bhardwaj PA-C [address] [address] 10/26/2025 10:15 AM EDT Office Visit [facility] [address] [phone] Ivonne Bhardwaj PA-C [address] [address] documented as of this encounter Visit Diagnoses Diagnosis Arthritis Unspecified arthropathy, site unspecified documented in this encounter Care Teams Emergency Technician Relationship Specialty Start Date End Date Ivonne Bhardwaj PA-C [address] [address] PCP - General Family Medicine 01/02/17 documented as of this encounter
--- NOTE | 2025-03-29 15:59 | XR_ITS ---
PROCEDURE INFORMATION: Exam: XR Pelvis Exam date and time: 03/29/2025 4:35 PM Age: 74 years old Clinical indication: Hip pain; Right hip; Additional info: Right hip pain TECHNIQUE: Imaging protocol: Radiologic exam of the pelvis. Views: 1 or 2 view. COMPARISON: CT ABDOMEN PELVIS W CON 03/29/2025 4:31 PM FINDINGS: Bones/joints: Partially seen lumbar spine fixation hardware. No complications. Moderate joint space narrowing in the bilateral femoroacetabular joints with subchondral sclerosis and small marginal osteophyte formation. Mild degenerative changes of the sacroiliac joints. No fracture or dislocation. Soft tissues: Unremarkable. IMPRESSION: Moderate bilateral hip osteoarthritis.
--- NOTE | 2025-03-29 15:59 | CT_ITS ---
PROCEDURE INFORMATION: Exam: CT Abdomen And Pelvis With Contrast Exam date and time: 03/29/2025 4:31 PM Age: 74 years old Clinical indication: Other: Abdominal pain, diarrhea TECHNIQUE: Imaging protocol: Computed tomography of the abdomen and pelvis with contrast. Radiation optimization: All CT scans at this facility use at least one of these dose optimization techniques: automated exposure control; mA and/or kV adjustment per patient size (includes targeted exams where dose is matched to clinical indication); or iterative reconstruction. Contrast material: ISOVUE; Contrast volume: 75 ml; Contrast route: IV; COMPARISON: CT ABDOMEN PELVIS W CON 03/29/2025 4:31 PM FINDINGS: Diaphragm: Small hiatal hernia. Liver: Liver is enlarged measuring 18 cm. No liver lesions. Gallbladder and biliary ducts: Cholecystectomy. Mild intra-and extrahepatic biliary ductal dilation is most likely the sequela of prior cholecystectomy in the absence of clinical symptomatology. If warranted, consider correlation with biliary levels. Pancreas: Benign fatty infiltration of the pancreas. 1.6 x 1.8 cm cystic lesion in the pancreatic tail. There is no pancreatic duct dilation. There are no peripancreatic inflammatory changes or fluid collections. Spleen: Multiple hypodense splenic lesions, too small to characterize. Consider nonemergent follow-up ultrasound. Adrenal glands: 8 mm left and 1.6 cm right bilateral adrenal nodules. Kidneys and ureters: There are small benign left kidney parapelvic cysts. The kidneys are otherwise unremarkable. No hydroureter. Stomach and bowel: Multiple loops of colon which are fluid-filled with mucosal hyperenhancement and engorgement of the vasa recta and pericolonic vasculature. No bowel obstruction. Prior gastric surgery. No complications. Appendix: No evidence of appendicitis. Intraperitoneal space: Unremarkable. No free air. No significant fluid collection. Vasculature: Mild atherosclerosis. No aneurysms. Lymph nodes: Several right lower quadrant prominent mesenteric lymph nodes are most probably reactive. Urinary bladder: No urinary bladder wall thickening, large masses, or stones. Reproductive: There has been a hysterectomy. No adnexal cysts or masses are identified. Bones/joints: Prior lumbar spine fixation at L4-L5. No complications. Normal alignment. Mild degenerative changes of the spine. Chronic grade 1 anterolisthesis of L4 in relation to L5. No acute fracture. Soft tissues: Multiple (at least 3) ventral abdominal wall fat containing hernias are present, the largest measuring 3 x 6.4 x 6 cm, with the neck measuring 11 mm. IMPRESSION: 1. Mild acute enterocolitis. 2. Several right lower quadrant prominent mesenteric lymph nodes are most probably reactive. 3. 1.6 x 1.8 cm cystic lesion in the pancreatic tail. Incompletely characterized in this examination. Follow-up with pancreatic cyst protocol MRI without and with contrast is recommended. 4. 8 mm left and 1.6 cm right bilateral adrenal nodules. These are incompletely characterized in this exam.In a patient with no cancer history, consider 12 month follow-up adrenal CT. (Reference: Tad) COMMENTS: 1. Consistent with the [place] [employer]'s Incidental Findings Committee white paper (J Am Alek Radiol 2017): Any incidental adrenal lesion less than 1 cm is likely benign. No follow-up imaging is recommended for these lesions per consensus recommendations based on imaging criteria. Further lab evaluation could be pursued if warranted based on clinical findings. 2. Consistent with the [place] [employer]'s Incidental Findings Committee white paper (J Am Alek Radiol 2018): Any incidental renal lesion less than 1 cm or classified as too small to characterize, or any incidental cystic renal lesion characterized as simple-appearing, is likely benign. No follow-up imaging is recommended for these lesions per consensus recommendations based on imaging criteria. REFERENCES: Tad ESPINAL, et al. Management of Incidental Adrenal Masses: A White Paper of the ACR Incidental Findings Committee. J Am Alek Radiol. 2017;14(8):5889-0055.
--- NOTE | 2025-03-29 15:59 | XR_ITS ---
PROCEDURE INFORMATION: Exam: XR Right Femur Exam date and time: 03/29/2025 4:35 PM Age: 74 years old Clinical indication: Pain; Lower leg; Right; Additional info: Right femur pain TECHNIQUE: Imaging protocol: Radiologic exam of the right femur. Views: 2 views. COMPARISON: CR XR FEMUR RT 2V 03/29/2025 4:35 PM FINDINGS: Bones/joints: Complete right knee arthroplasty in adequate anatomic alignment. No evidence of hardware complications. Specifically, no evidence for hardware loosening or periprosthetic fractures. Moderate osteoarthritis of the right hip joint. No acutely displaced fractures. No joint dislocation. No aggressive osseous lesions. Soft tissues: No acute soft tissue findings. IMPRESSION: No acute skeletal pathology.
[2025-03-29 16:05] LABS: Hematocrit 43.8 % (37.0-47.0); Hemoglobin 14.2 g/dL (12.2-16.2); Immature Granulocytes % 0.2 %; Mean Corpuscular HGB Conc 32.4 g/dL (31.8-35.4); Mean Corpuscular Hemoglobin 29.7 pg (27.0-31.2); Mean Corpuscular Volume 91.6 fl (81-99); Nucleated Red Blood Cells % 0 %; Platelet Count 265 K/mm3 (142-424); Red Blood Count 4.78 M/mm3 (4.20-5.40); Red Cell Distribution Width-SD 43.8 fL; White Blood Count 5.3 K/mm3 (4.8-10.8)
[2025-03-29 16:12] LABS: Alanine Aminotransferase 20 U/L (12-78); Albumin Level 4.7 g/dl (3.5-5.0); Albumin/Globulin Ratio 1.6 (1.1-1.8); Alkaline Phosphatase 101 U/L (38-126); Anion Gap 13.1 mEq/L (5-15); Aspartate Amino Transferase 28 U/L (14-36); Bilirubin,Total 0.5 mg/dl (0.2-1.3); Blood Urea Nitrogen 22 mg/dl (7-17); Calcium 9.5 mg/dl (8.4-10.2); Carbon Dioxide 23 mmol/L (22.0-30.0); Chloride 106 mmol/L (98-107); Creatine Kinase 100 U/L (30-135); Creatinine Clearance Estimated 66 mL/min (50-200); Creatinine,Serum 0.90 mg/dl (0.52-1.04); Estimated Glomerular Filt Rate 61 ml/min (>60); GFR (African American) 74 ML/MIN (>60); Globulin 3.0 g/dL (1.3-3.2); Glucose 103 mg/dl (74-100); Lipase 28 U/L (23-300); Potassium 3.1 mmoL/L (3.5-5.1); Sodium 139 mmol/L (136-145); Total Protein,Serum 7.7 g/dl (6.3-8.2)
[2025-03-29 16:31] LABS: Coronavirus 19, PCR Not Detected (NotDetected); Influenza A, PCR Not Detected (NotDetected); Influenza B, PCR Not Detected (NotDetected)
[2025-03-29] MEDS: IOPAMIDOL-370 (76%);100ML BOTTLE 75 ML IV (16:44)
[2025-03-29] MEDS: SODIUM CHLORIDE 0.9% 10ML SYR (RAD ONLY) 10 ML IV (16:44)
[2025-03-29] MEDS: METHOCARBAMOL 500MG TABLET 500 MG PO (17:39)
[2025-03-29] MEDS: POTASSIUM CHLORIDE 20MEQ/15ML UDC 40 MEQ PO (17:39)
[2025-03-29] MEDS: KETOROLAC 15MG/ML VIAL 15 MG IV (17:41)
--- NOTE | 2025-03-29 17:52 | ED_ITS ---
Discharge Plan Disposition Patient Disposition: Home, Self-Care Condition: Good Prescriptions Prescriptions: No Action tolterodine 2 mg capsule,extended release 24hr 2 mg PO DAILY Patient Comments: TAKE 1 CAPSULE BY MOUTH DAILY FOR OVERACTIVE BLADDER ibuprofen 800 mg tablet 800 mg PO TIDP PRN (Reason: Pain) Patient Comments: TAKE 1 TABLET BY MOUTH 3 TIMES A DAY NEEDED FOR JOINT PAIN WITH ARTHRITIS gabapentin 300 mg capsule 300 mg PO DAILY Patient Comments: TAKE 1 CAPSULE BY MOUTH FOUR TIMES DAILY escitalopram oxalate 10 mg tablet 10 mg PO DAILY Patient Comments: TAKE 1 TABLET BY MOUTH ONCE DAILY albuterol sulfate [Proventil HFA] 90 mcg/actuation HFA aerosol inhaler 1 inh inhalation Q6H PRN (Reason: shortness of breath or wheezing) Qty: 8.5 0RF doxycycline hyclate 100 mg capsule 100 mg PO BID Qty: 20 0RF prednisone 20 mg tablet 20 mg PO BID 5 Days Qty: 10 0RF benzonatate 100 mg capsule 100 mg PO TID PRN (Reason: cough) Qty: 30 0RF Referrals Follow up/Referrals: Ivonne Bhardwaj PA [Primary Care Provider, Family Practice] - See instructions Activity Restrictions/Add. Instructions Additional Instructions/Restrictions: You have a viral syndrome that is causing diarrhea, referred to as enterocolitis. Continue to monitor the pain in your right groin and if this persist please follow-up with your primary care provider for further workup. Additionally, on your CT scan we see incidental findings including an adrenal nodule as well as a pancreatic cyst. I want you to follow-up with your primary care provider for further workup with an MRI. Clinical Impressions Clinical Impression: Acute leg pain, Abdominal pain, Diarrhea, Adrenal nodule, Pancreas cyst, Enterocolitis, Acute hypokalemia Print Language Print Language: Bengali Discharge ED Provider: Charlie Bettencourt General Adult HPI General Chief complaint: PAIN Stated complaint: diarrhea, right leg weakness Time Seen by Provider: 03/29/25 15:36 Mode of Arrival: Ambulatory Source of Information: Patient Description of Symptoms (Recalled from ER Triage Doc. by RN): pt presents to ED with c/o right thigh pain since . diarrhea ongoing since . pt reports a fever yesterday. pt reports that she had two falls yesterday but did not hit her head and did not have LOC. History of Present Illness HPI narrative: This is a 74-year-old female patient, who self-reports no past medical history, who is presenting to the emergency department today for evaluation of diarrhea and right lower extremity pain. Patient states that on morning she woke from sleep and upon waking she was experiencing some pain in the right groin and this pain is worse with ambulation. She has had full range of motion of the right hip and the right knee but states that her groin is tender to palpation. She tells me that yesterday she did tripped over the dog and fall twice but she did not hit her head and did not lose consciousness. She also does not feel that this fall has particularly exacerbated her hip/leg pain. She has not noticed any rashes in the region. She additionally reports diffuse abdominal pain as well as diarrhea since that time. She has had no hematochezia or melena. No hematemesis. No nausea or vomiting. She states that she has had subjective fevers and chills at home intermittently. Related Data Home Medications ?Medication ?Instructions ?Recorded ?Confirmed escitalopram oxalate 10 mg tablet 10 mg PO DAILY 05/2103/28/24 gabapentin 300 mg capsule 300 mg PO DAILY 05/21/23 ibuprofen 800 mg tablet 800 mg PO TIDP PRN Pain 05/0703/28/24 tolterodine 2 mg capsule,extended 2 mg PO DAILY 03/28/24 release 24 hr Previous Rx's ?Medication ?Instructions ?Recorded albuterol sulfate 90 mcg/actuation 1 inh inhalation Q6 H PRN shortness 05/21/23 aerosol inhaler (Proventil HFA) of breath or wheezing #8.5 grams benzonatate 100 mg capsule 100 mg PO TID PRN cough #30 caps 03/28/24 doxycycline hyclate 100 mg capsule 100 mg PO BID #20 c aps 03/28/24 prednisone 20 mg tablet 20 mg PO BID 5 days #10 tabs 03/28/24 Allergies Allergy/AdvReac Type Severity Reaction Status Date / Time No Known Allergies Allergy Verified 04/24/23 15:01 [facility] Disclaimer: The information contained in this section may have been updated after the patient was seen, as this information can be updated by other users. Medical History (Updated 03/29/25 @ 18:05 by Charlie Bettencourt DO) Cataract History of pulmonary embolus (PE) Thyroid disease Surgical History History of neck surgery History of shoulder surgery History of knee replacement procedure of right knee History of gastric bypass History of hysterectomy History of cholecystectomy Family History Other Family history of diabetes mellitus type II Family history of hypertension Social History (Updated 03/28/24 @ 17:42 by Sarai Osborne APRN) Smoking Status: Never smoker alcohol intake: never current occupational status: other Travel in the last 8 weeks?: None housing: house lives independently: Yes marital status: single education level: high school service: No long-term: No caffeine: Yes do you feel safe at home: Yes victim of physical abuse: No victim of emotional abuse: No victim of sexual abuse: No would you like helpful sources: No Have you lived/traveled outside [place] in past 30 days?: No Contact w/someone who lives/traveled outside [place] past 30 days?: No Exposure to someone with infectious disease in past 14 days?: No Do you have a fever (greater than 100.4 F or 38 C)?: No Have you tested positive for COVID-19?: No Exposed to someone with COVID-19 in past 14 days?: No Do you have a sore throat?: No Do you have a cough?: No Do you have any weakness?: No Do you have any diarrhea?: No Are you experiencing any unusual bleeding?: No Do you have any muscle aches/pain?: No Do you have any abdominal pain?: No Are you experiencing loss of taste or smell?: No Other Medical History Have you received the Flu Vaccine for this season: No Have you received the Pneumonia Vaccine: No ROS Obtained: Yes Systems reviewed as appropriate & no additional complaints except as documented Physical Exam General General appearance: other (See MDM) Respiratory Respiratory exam: Present other (See MDM) Cardiovascular Cardiovascular exam: Present other (See MDM) Neurological Exam Neurological exam: Present other (See MDM) Medical Decision Making Medical Records Medical records reviewed: Yes I reviewed the patient's medical records. Screening: Per USPSTF and CDC recommendations, given the prevalence of disease in our region, it is our hospital?s policy to screen for HIV and viral Hepatitis for all patients aged 18 and over and those with ongoing risk factors. Thiago Inquiry Pt receiving controlled substance: No Thiago was queried for this patient: No Vital Signs: 03/29/25 15:43 03/29/25 15:47 03/29/25 16:01 Temperature 98.8 F Temperature Source Oral Pulse Rate 87 81 Pulse Rate [Left Radial] 72 Respiratory Rate 19 Blood Pressure 182/79 H 131/58 L Blood Pressure [Right Arm] 182/79 H Blood Pressure Mean [Right Arm] 113 02 Sat by Pulse Oximetry 98 99 99 Oxygen Delivery Method Room Air Room Air Room Air 03/29/25 17:00 03/29/25 17:13 03/29/25 17:31 Temperature Temperature Source Pulse Rate 80 74 74 Pulse Rate [Left Radial] Respiratory Rate Blood Pressure 133/69 130/65 Blood Pressure [Right Arm] Blood Pressure Mean [Right Arm] 02 Sat by Pulse Oximetry 96 98 95 Oxygen Delivery Method Room Air Room Air Room Air Lab Data Lab Results 03/29/25 15:45: WBC 5.3, RBC 4.78, Hgb 14.2, Hct 43.8, MCV 91.6, MCH 29.7, MCHC 32.4, RDW 12.9, Plt Count 265, MPV 9.7, Neut % (Auto) 57.2, Lymph % (Auto) 28.4, [place] % (Auto) 10.0 H, Eos % (Auto) 4.0, Baso % (Auto) 0.2, Neut # (Auto) 3.0, Lymph # (Auto) 1.5, [place] # (Auto) 0.5, Eos # (Auto) 0.2, Baso # (Auto) 0.0, Sodium 139, Potassium 3.1 L, Chloride 106, Carbon Dioxide 23, Anion Gap 13.1, B UN 22 H, Creatinine 0.90, Estimated Creat Clear 66, Estimated GFR 61, Est GFR ( Amer) 74, Glucose 103 H, Lactate 1.4, Calcium 9.5, Total Bilirubin 0.5, AST 28, ALT 20, Alkaline Phosphatase 101, Total Creatine Kinase 100, Total Protein 7.7, Albumin 4.7, Globulin 3.0, Albumin/Globulin Ratio 1.6, Lipase 28 03/29/25 16:25: SARS-CoV-2 (PCR) Not detected, Influenza A Untype (PCR) Not detected, Influenza Type B (PCR) Not detected 03/29/25 15:45 03/29/25 15:45 Orders (Tests/Meds): ED MEDICATIONS Generic Name Dose Route Start Last Admin Trade Name Freq PRN Reason Stop Dose Admin Sodium Chloride 10 ml 03/29/25 16:41 03/29/25 16:44 Sodium Chloride 0.9% 10ml Syr (Rad Only) IV 04/28/25 16:40 10 ml NEEDED PRN Administration Maintain IV Site Discontinued Medications Generic Name Dose Route Start Last Admin Trade Name Freq PRN Reason Stop Dose Admin Iopamidol 75 ml 03/29/25 16:41 03/29/25 16:44 Iopamidol-370 (76%);100ml Bottle IV 03/29/25 16:42 75 ml ONCE ONE Administration Ketorolac Tromethamine 15 mg 03/29/25 17:28 03/29/25 17:41 Ketorolac 15mg/Ml Vial IV 03/29/25 17:29 15 mg ONCE ONE Administration Methocarbamol 500 mg 03/29/25 17:29 03/29/25 17:39 Methocarbamol 500mg Tablet PO 03/29/25 17:30 500 mg ONCE ONE Administration Potassium Chloride 40 meq 03/29/25 17:28 03/29/25 17:39 Potassium Chloride 20meq/15ml Udc PO 03/29/25 17:29 40 meq ONCE ONE Administration ORDERS Category Date Time Status CT abdomen pelvis w con Stat Cat Scan 03/29/25 15:59 Completed Femur XR right 2 views [XR femur RT 2V] Stat Exams 03/29/25 15:59 Completed XR pelvis 1-2V Stat Exams 03/29/25 15:59 Completed CBC w/Auto Diff [Complete Blood Count Auto Diff] Stat Lab 03/29/25 15:45 Completed CK [Creatine Kinase] Stat Lab 03/29/25 15:45 Completed CMP [Comprehensive Metabolic Panel] Stat Lab 03/29/25 15:45 Completed Lactic Acid Stat Lab 03/29/25 15:45 Completed Lipase Stat Lab 03/29/25 15:45 Completed Rapid PCR Covid and Flu A/B Stat Lab 03/29/25 16:25 Completed diarrhea [GI Mid Panel, PCR] Stat Lab 03/29/25 15:59 Ordered Medical Decision Narrative: In summary, is a 74-year-old female patient who is presenting to the emergency department today for evaluation of right groin pain as well as diffuse abdominal pain with diarrhea over the last couple days. She has had 2 falls yesterday after tripping over her dog. She did not hit her head or lose consciousness. She reports no past medical history or daily medications. On initial evaluation of the patient they were resting comfortably in no acute distress and nontoxic in appearance. They are hemodynamically stable, saturating well room air, and are neurologically intact. While the patient was coming into the emergency department she was able to ambulate independently to the bed. On physical examination heart lungs clear auscultation bilaterally. She has diffuse abdominal tenderness with no evidence of rigidity or mehran peritonitis. She does not have any rashes appreciated in the groin or vulvar region. She has no rashes appreciated on the right lower extremity. I do not appreciate any evidence of obvious femoral or inguinal hernias. She has full range of motion about the hip and the knee, however she does have tenderness to palpation of the region of the adductor muscles in the right groin. Reflexes are intact in her bilateral lower extremities. She has no midline lumbar back pain. Differential diagnosis includes gastroenteritis, enteritis, infectious colitis, femoral hernia, inguinal hernia, hip fracture, femoral fracture, among others Workup was initiated with hematologic labs as well as a CT scan of the abdomen pelvis and x-ray of the right hip and right femur. We have treated the patient with 15 mg of Toradol and 500 mg Robaxin for pain. Labs were personally interpreted by me demonstrate no leukocytosis or Transfusable anemia. She is mildly hypokalemic with a potassium of 3.1. Otherwise labs are largely unremarkable. I did swab the patient for COVID and influenza and these were negative. We have replaced the patient's potassium with 40 mEq oral potassium chloride X-rays of the hip and femur were personally turbid by me and demonstrate no bony fracture or malalignment. CT scan of the abdomen and pelvis was personally turbid by me and demonstrates no large pneumoperitoneum. Official radiology read is in agreement and states the patient does have very mild acute enterocolitis. Additionally they note that there is mesenteric nodes in the right lower quadrant which are probably reactive and could be contributing to the patient's pain. They also note an incidental finding of a cystic lesion in the pancreatic tail and bilateral adrenal nodules. On repeat assessment the patient she feels improved. I have informed her of the findings of her CT scan independence her to follow-up with her primary care physician about the pancreatic cyst and adrenal nodules. At this time all questions been answered and all parties are agreeable with the decision to discharge home Critical Care Critical Care Time Critical Care Time: No
== END 2025-03-29 18:14 | disposition home or self-care (01) ==
PROVIDERS: Emergency Provider Student in an Organized Health Care Education/Training Program; PCP Physician Assistant Medical
DX: R10.84 Generalized abdominal pain (principal); M79.604 Pain in right leg; E87.6 Hypokalemia; K52.9 Noninfective gastroenteritis and colitis, unspecified; K86.2 Cyst of pancreas; E27.9 Disorder of adrenal gland, unspecified; W01.10XA Fall on same level from slipping, tripping and stumbling with subsequent striking against unspecified object, initial encounter
CPT/HCPCS: 72170; 73552; 74177; 80053; 82550; 83605; 83690; 85025; 87636; 96374; 99285; J1885; Q9967